=== PATIENT | female | born 1970 | race Caucasian/White ===

== ENCOUNTER 2017-05-25 16:56 | Emergency (ER) | payer MEDICARE ==
--- OUTSIDE RECORDS SUMMARY | 2017-05-25 17:04 | XMS REPORT ---
:1970 External Reference #:[id number] Author Organization [facility] Address [address] [address] Phone [phone] Care Team Providers Name Role Phone Aleks Amanda III, MD Primary Care Physician Unavailable Payers Type Date Identification Numbers Payment Provider Subscriber Medicare Primary Effective: Policy Number: Medicare Cris Blair 2012 [id number] PayID: [id number] [address] [place] [address] [facility] Policy Number: [id number] Medicaid Cris Blair Group Name: 1 1 [address] PayID: [id number] [place] [address] Problems Date Description Provider Status Onset: 02/08/2007 Seizure Noe Luke M.D.,FACP Active Onset: 02/08/2007 Insomnia Noe Luke M.D.,FACP Active Onset: 02/08/2007 Migraine with typical aura Noe Luke M.D.,FACP Active Onset: 07/08/2011 Chest pain Pam Harrison D.O. Active Onset: 04/13/2012 Myalgia & Myositis Unspec Aleks Amanda M.D. Active Onset: 04/13/2012 Pure hypercholesterolemia Aleks Amanda M.D. Active Family History Date Family Member(s) Problem(s) Comments General Coronary Artery Disease (CAD) Shashank kraft 50's [place], and other family members on maternal side : (age Father due to CA (+) smoker 48 Years) Father Coronary Artery Disease (CAD) 49 yo [place] Onset: (age 19 Mother Hypertension Years) Mother due to CA () - age 57; no prior heart problems. (+) smoker, HTN Mother Hypercholesterolemia Mother Coronary Artery Disease (CAD) 58 yo [place] Paternal Grandmother Hypertension Maternal Grandfather due to CA () - age 60's Maternal Grandmother due to CA () - age 60's Social History Type Date Description Comments Marital Status Single Lives With Daughter Occupation currently not working Cigarette Use Never Smoked Cigarettes ETOH Use Rarely consumes alcohol Recreational Drug Use Denies Drug Use Smoking Patient has never smoked Daily Caffeine Consumes on average 1 cup of regular coffee per day Enjoy Exercising Does not enjoy exercising Exercise Type/Frequency Exercises regularly occasionally walking General Hx Text 1 daughter Allergies, Adverse Reactions, Alerts Date Description Reaction Status Severity Comments 06/22/2009 Wellbutrin XL agitation, anxiety and active muscle cramps 06/19/2010 Lyrica edema active 06/19/2010 Gluten active 05/21/2012 Savella ssri syndrome active Moderate to Severe 09/09/2012 Neurontin hyperactive active 11/05/2012 Clonazepam aggitated active 01/20/2013 Tizanidine active Medications Medication Date Status Form Strength Qnty SIG Indications Ordering Provider Baclofen 05/21/ Active Tablets 10mg 30tab take 04/07 R51 Romulo 2018 s tab every 8 Bridgette, [employer]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 as needed for muscle spasm Naproxen 04/23/ Active Tablets 500mg 20tab 1 tablet R51 Romulo 2018 s with food Bridgette, [employer] NETWORK ADMINISTRATOR by mouth twice a day as needed Blood Pressure 11/08/ Active Misc 1unit in the 401.9 Kala Monitor 2013 s morning and Tabitha Oakley/Manual at night M.DLam Inflate Garlic / Active daily Unknown 0000 Adderall XR / Active Caps ER 30mg 1 by mouth Unknown 0000 24HR every day Klonopin / Active Tablets 1mg 1po a day Unknown 0000 Cholestyramine / Active Packet 4gm mix one Herminia, Light 0000 packet in raji Laura and take by mouth twice a day Zinc / Active Tablets 50mg 1 tab daily Unknown 0000 (otc) B6 Natural 00/ Active Tablets 50mg take one Unknown 0000 capsule/tab let daily by mouth D3-1000 0000/ Active Capsules 5000Unit please take Unknown 0000 1 tab daily Zyflammend / Active 2 caps Unknown 0000 daily Probiotic / Active Capsules 1 by mouth Unknown 0000 every day Doxycycline 04/23/ Hx Capsules 100mg 42cap si A69.20 Romulo Monohydrate 2018 - s twice a day JANI Angeles 05/06/ x 21 days 2018 Cholestyramine 11/22/ Hx Packet 4gm 50uni as directed Kala Watkins ts Adin MMahsa 2015 Propranolol HCL 11/22/ Hx Caps ER 80mg 30cap 1 tab po in 401.1 Kala ROMERO 2013 - 24HR s the evening Adin, MMahsa 2015 Lisinopril 11/08/ Hx Tablets 10mg 30tab 1 by mouth 401.9 Kala michelle every day Adin MMahsa 2013 Aspir-81 11/08/ Hx Tablets 81mg 100ta 1 by mouth 401.[address] bs every day Adin MMahsa 2015 Atenolol 11/08/ Hx Tablets 25mg 90tab 1 by mouth 401.9 Kala 2013 Roland michelle every day Adin MMahsa 2016 Propranolol HCL 11/04/ Hx Tablets 10mg 1 by mouth Other 2014 - three times Ordering 11/22/ a daily Provider 2013 Lamotrigine 04/04/ Hx Tablets 25mg 60tab take 1 po Tiffani 2012 - s qhs x 2 Laron, 11/08/ weeks, then M.D. 2014 1 po bid Cyclobenzaprine 01/20/ Hx Tablets 10mg 30tab one po tid 723.1 Sharri HCL 2012 - s prn spasm Jerry, 04/04/ N.P. 2012 Ibuprofen 11/05/ Hx Tablets 200mg 100ta 3 tablets Sharri 2012 - bs prn Jerry, 11/05/ N.P. 2013 Cyclobenzaprine 11/05/ Hx Tablets 5mg 20tab 1 tab po 729.1 Sharri HCL 2012 - s tid prn Jerry, 01/20/ N.P. 2013 Venlafaxine HCL 09/09/ Hx Tablets 225mg 30tab 1 tab po qd Sharri ER 2013 - ER 24HR s Jerry, 10/28/ N.P. 2013 Tramadol HCL 09/09/ Hx Tablets 50mg 90tab 1 tab po q 729.1 Sharri 2012 - s 4-6 hours Jerry, 10/14/ prn; N.P. 2012 Aleve 08/04/ Hx Capsules 220mg 60cap prn Other 2012 - s Ordering 07/11/ Provider 2016 Adderall 08/04/ Hx Tablets 20mg 60tab 1 po bid Other 2012 - s Ordering 11/08/ Provider 2014 Gabapentin 05/21/ Hx Capsules 300mg 90cap 300 mg po 729.1 Sharri 2012 - s qd x1 day, Jerry, 08/04/ then 300 mg N.P. 2012 po bid x1 day, then 300 mg po tid Cyclobenzaprine 05/21/ Hx Tablets 5mg 30tab 1 tab po 524.60 Sharri HCL 2012 - qhs Jerry, 08/04/ N.P. 2013 Ergocalciferol 05/21/ Hx Capsules [id number] 12cap 1 cap po q1 268.9 Sharri 2012 - week for 2 Jerry, 08/04/ months then N.P. 2013 2x/mon Butrans 04/13/ Hx Patches 10mcg/HR 4unit apply 1 Aleks Payne 2012 - s patch Treasure, 08/04/ weekly M.DLam 2012 Prazosin HCL 06/30/ Hx Capsules 1mg 1 po tid Aleks Payne 2011 - Treasure, 06/30/ M.D. 2012 Ibuprofen 01/14/ Hx Tablets 600mg 45tab tid 382.9 Nakul 2010 - s Pachikara 04/13/ , MJosé. 2013 Amoxicillin 07/15/ Hx Capsules 500mg 30cap 1 tid for 462 Aleks Payne 2010 - s 10 days Treasure, 09/26/ M.D. 2011 Duragesic-25 10/10/ Hx Patches 25mcg/HR 10uni apply Noe 2009 - 72HR ts topically Kimi Luke, 01/16/ change q3 Yoav,FACP 2010 days Use with 12mcg patch Duragesic-12 10/10/ Hx Patches 12mcg/HR 10uni topical q3d Noe 2009 - 72HR ts with 25 mcg Kimi Luke, 01/14/ patch Yoav,FACP 2010 Duragesic-50 10/03/ Hx Patches 50mcg/HR 10uni apply 729.1 Noe 2009 - 72HR ts topically Kimi Luke, 10/10/ q3days M.D.,FACP 2010 Clonidine HCL 09/27/ Hx Tablets 0.1mg 60tab 1 po bid Noe 2009 Roland Luke, 05/13/ M.D.,FACP 2011 Omeprazole 09/27/ Hx Capsules 20mg 30cap 1 po qd for 530.81 Noe michelle 2 wks then Kimi Luke, 05/13/ prn M.D.,FACP 2011 Savella Titration 09/27/ Hx Misc 12.5& 1pak as directed 729.1 Ravi Turcios 2009&50 samples Kimi Luke, 10/17/ mg M.D.,FACP 2010 Tramadol HCL 09/25/ Hx Tablets 50mg 100ta PO qid prn 729.1 Noe 2009 Roland Luke, 05/13/ M.D.,FACP 2011 Duragesic-12 09/07/ Hx Patches 12mcg/HR 10uni topical q3d Noe 2009 - 72HR ts with 25 mcg Kimi Luke, 09/27/ patch M.D.,FACP 2009 Adderall 08/17/ Hx Tablets 30mg 30tab 1 po daily Noe 2009 Roland Luke, 04/13/ M.D.,FACP 2013 Vitamin D 08/17/ Hx Capsules 1000Unit 30cap 2 po qd 268.9 Noe 2009 Roland Luke, 06/30/ M.D.,FACP 2011 Duragesic-25 08/17/ Hx Patches 25mcg/HR 10uni apply 729.1 Noe 2009 - 72HR ts topically Kimi Luke, 10/03/ change q3 M.D.,FACP 2010 days Lyrica 07/30/ Hx Capsules 25mg 60cap 1 po bid Noe 2009 Roland Luke, 08/17/ M.D.,FACP 2010 Methadone HCL 06/14/ Hx Tablets 5mg 120ta 1-2 po bid Noe 2009 - bs prn pain Kimi Luke, 08/17/ M.D.,FACP 2010 Hydrocodone-Aceta 05/11/ Hx Tablets 10-325mg 40tab 1 q 4- 6 729.1 Ellen mariano 2009 - s hours prn Tiffany, pain M.D. 2009 Methadone HCL 12/15/ Hx Solution 5mg/5ML 600ml 5-10mg bid 729.1 Ravi Prince 2008 - prn pain Kimi Luke, M.D.,FACP 2010 Savella 11/28/ Hx Tablets 100mg 60tab 1 bid 729.1 Noe 2008 - s Kimi Luke, .D.,FACP 2010 Zofran 11/16/ Hx Tablets 4mg 60tab 1 q 6 hours 787.02 Noe 2008 - s prn nausea Kimi Luke, .D.,FACP 2010 Methadone HCL 11/16/ Hx Tablets 5mg 90tab 1 po tid Noe Cas[place] - s Kimi Luke, .D.,FACP 2008 Methadone HCL 07/17/ Hx Tablets 10mg 180ta 1or 2 tabs Noe 2009 - bs tid prn Kimi Luke, pain M.D.,FACP 2010 Oxycodone HCL 06/21/ Hx Capsules 5mg 240ca 2tab q6hr 729.1 Noe 2008 - ps prn Kimi Luke, .D.,FACP 2008 Oxycontin 06/15/ Hx Tablets 20mg 60tab 1-2 q12h Noe 2008 - ER 12HR viviana Luke, .D.,FACP 2008 Oxycodone HCL 06/15/ Hx Tablets 10mg 120ta 1 q 6 hours 729.1 Noe 2008 - bs prn pain Kimi Luke, M.D.,FACP 2008 Cymbalta 05/03/ Hx Caps DR 30mg 60cap po qd Noe 2008 - PA s Kimi Luke, M.D.,FACP 2010 Lamictal 05/03/ Hx Tablets 25mg 2 po qd Noe Luke, 04/16/ M.D.,FACP 2009 Methadone HCL 03/14/ Hx Tablets 10mg 120ta 1or 2 tabs 338.4 Noe 2008 - bs po tid D. Marly, 06/15/ M.D.,FACP 2009 Duragesic 01/04/ Hx Patches 50mcg/HR 10uni 1 patch q72 729.1 Noe 2008 - 72HR ts D. Marly, 03/14/ M.D.,FACP 2007 Duragesic 12/01/ Hx Patches 25mcg/HR 10uni topical 729.1 Noe 2008 - 72HR ts q3days D. Marly, 03/14/ M.D.,FACP 2008 Ultram 10/21/ Hx Tablets 50mg 40tab 1 or 2 tabs Aleks ELam 2008 - s q 6 hours Treasure, 08/04/ prn pain M.D. 2013 Skelaxin 10/21/ Hx Tablets 800mg 90tab 1 q 8 hours Noe 2008 - s prn muscle D. Marly, 01/25/ spasms M.D.,FACP 2007 Duragesic 10/18/ Hx Patches 50mcg/HR 10uni 1 patch 729.1 Noe 2008 - 72HR ts every 72 D. Marly, 12/01/ hours M.D.,FACP 2007 Hydrocodone/Apap 09/16/ Hx Tablets 10-325mg 180ta 1 q 4 hours 729.1 Noe 2008 - bs prn pain D. Marly, 06/22/ M.D.,FACP 2009 Cephalexin 06/07/ Hx Capsules 500mg 30cap 1 tid x 10 461.9 Noe 2008 - s days DLam Luke, 10/18/ M.D.,FACP 2008 Lyrica 06/07/ Hx Capsules 50mg 90cap 1 po tid 729.1 Noe 2008 - s DLam Luke, 01/25/ M.D.,FACP 2008 Methadone 04/29/ Hx Tablets 10mg 12tab 1tab tid x Noe 2008 - s 2days DLam Luke, 05/31/ M.D.,FACP 2008 1tab bid x 2days 1tab qd x 2days Lamictal 03/03/ Hx Tablets 25mg 3Mont bid Noe 2007 - h Kimi Luke, 05/03/ M.D.,FACP 2009 Amoxicillin 03/03/ Hx Capsules 500mg 40cap 2 bid for 461.9 Noe 2006 - s 10 days Kimi Luke, 05/31/ M.D.,FACP 2008 Remeron 02/08/ Hx Tablets 30mg 1 Tabs PO Noe 2006 - Q hs Kimi Luke, 06/07/ M.D.,FACP 2008 Ambien 02/08/ Hx Tablets 10mg 30tab 1 po qhs Noe 2006 - s prn sleep Kimi Luke, 06/07/ insomnia M.D.,FACP 2007 Lamictal 02/08/ Hx Tablets 25mg qd, Noe 2006 - increasing Kimi Luke, 03/03/ M.D.,FACP 2006 Ambien / Hx Tablets 10mg. 10tab 1 hs prn Noe - s Kimi Luke, 09/16/ M.D.,FACP 2007 Zoloft / Hx Tablets 50mg 30tab 1 PO qd Unknown 0000 - s 2007 Lunesta /00/ Hx Unknown 0000 - 2008 Cymbalta / Hx Caps DR 60mg 1 PO qd Unknown 0000 - Part 2008 Abilify / Hx Tablets 5mg 1 po qd Unknown - 2009 Wellbutrin XL 00/ Hx Tablets 450 90tab once qd 729.1 Unknown 0000 - ER 24HR s 2009 Savella 00/ Hx Tablets 50mg 60tab 1 po bid 729.1 Noe - s Kimi Luke, 08/17/ M.D.,FACP 2009 Effexor /00/ Hx Tablets 37.5mg 3 po qd Unknown 0000 - 2010 Klonopin 00/ Hx Tablets 2mg 1/2-1 tab Unknown 0000 - up to qid 06/19/ prn 2010 Effexor XR /00/ Hx Caps ER 150mg 1 tab po qd Unknown 0000 - 24HR am 2012 Adderall 00/ Hx Tablets 10mg 1 by mouth Unknown 0000 - daily 2011 Valium 00/00/ Hx Tablets 10mg 10tab 1 po qd Unknown 0000 - s 2010 Multi Vitamin 00/00/ Hx Liquid 1 po qd Unknown 0000 - 2011 Remeron /00/ Hx Tablets 15mg 90tab 1 po hs Unknown 0000 - s 2010 Aspirin 00/00/ Hx Tablets 81mg 50tab 1 po qd Unknown 0000 - DR s 2011 Doxepin HCL / Hx Capsules 25mg one po qday Unknown - 2011 Butrans 00/ Hx Patches 15mcg 4unit topical Unknown 0000 - Weekly s q7days 2011 Augmentin // Hx Tablets 875mg 20tab 1 po bid Unknown 0000 - s for ten 2010 Venlafaxine HCL 00/00/ Hx Caps ER 150mg 30cap 1 po bid Unknown ER 0000 - 24HR s 2011 Tizanidine HCL / Hx Tablets 4mg 60tab take 1 Unknown 0000 - s tablet po and in 2012 the am for spasm. Clonazepam 00/00/ Hx Tablets 1mg 90tab 1 po q bid Unknown 0000 - s 2012 Adderall XR / Hx Caps ER 30mg 30cap 1 capsule Unknown 0000 - 24HR s po qday 2011 Aleve /00/ Hx Capsules 220mg 60cap 1 po bid Unknown 0000 - s prn 2011 Brainstorm 00/00/ Hx Unknown - 2012 Piotr Oil /00/ Hx Unknown - 2012 Alice Agus Soriano 00/00/ Hx Unknown - 2012 Naprosyn /00/ Hx Tablets 60tab 1 po bid Unknown 0000 - s 2012 Zanaflex /00/ Hx Capsules 270ca po tid prn Unknown 0000 - ps [address] 00/ Hx Tablets 81mg 1 po qd Unknown 0000 - DR 2012 Prazosin HCL 00/ Hx Capsules 2mg 1-2 prn Unknown - 2012 Vitamin D3 High 00/ Hx Capsules 5000Unit 1 tabs Unknown Potency 0000 - daily 2012 Melatonin 00/00/ Hx Capsules 5mg 30cap 1 po qhs Unknown 0000 - s 2012 Zyprexa 00/00/ Hx Solution 2.5 sublingual Unknown 0000 - Rec 2012 Temazepam 00/00/ Hx Capsules 30cap 1 po qhs Unknown 0000 - s 2012 Venlafaxine HCL 00/00/ Hx Tablets 150mg 90tab 1 po qd Unknown ER 0000 - ER 24HR s 2013 Clonazepam /00/ Hx Tablets 1mg 20tab 1-3 tablets Unknown 0000 - s po prn 2012 Ibuprofen /00/ Hx Tablets 200mg 100ta 3 tabs prn Unknown 0000 - bs 2015 Trazodone HCL 00/ Hx Tablets 50mg 30tab 1 tablet at Unknown 0000 - s bedtime as 2013 Stinging Nettle / Hx Capsule 4 PO qd Unknown 0000 - 2013 Zyflammend / Hx 2 PO qd Unknown 0000 - 2013 Tumeric 00/ Hx 4 PO qd Unknown 0000 - 2013 [place] 3 // Hx Capsules 1000mg 100ca 1 po qd. Unknown 0000 - ps 2013 Magnesium /00/ Hx daily Unknown 0000 - 2015 Effexor XR / Hx Caps ER 75mg tapering Unknown 0000 - 24HR dose 2015 Immunizations CPT Code Status Date Vaccine Lot # [id number] Given 03/03/2007 Influenza Virus 3Yrs & Over [id number] Given Unknown Tetanus And Diptheria (Td) For Adult Use Preservative Free Vital Signs Date Vital Result Comment 05/21/2017 Weight 150.75 lb Heart Rate 77 /min BP Systolic 126 mmHg BP Diastolic 76 mmHg Body Temperature 97.0 F O2 % BldC Oximetry 98 % 05/06/2017 Height 67 inches 5'7" Weight 152.00 lb Heart Rate 74 /min BP Systolic 123 mmHg BP Diastolic 82 mmHg Body Temperature 98.1 F O2 % BldC Oximetry 98 % BMI (Body Mass Index) 23.8 kg/m2 05/01/2017 Height 66 inches 5'6" Weight 152.00 lb Heart Rate 92 /min BP Systolic Sitting 124 mmHg BP Diastolic Sitting 78 mmHg Respiratory Rate 14 /min Body Temperature 98.2 F BMI (Body Mass Index) 24.5 kg/m2 04/23/2017 Weight 150.25 lb Heart Rate 100 /min BP Systolic 140 mmHg BP Diastolic 86 mmHg Body Temperature 98.3 F O2 % BldC Oximetry 99 % 07/12/2015 Weight 175.00 lb Heart Rate 82 /min BP Systolic Sitting 145 mmHg BP Diastolic Sitting 101 mmHg Body Temperature 98.7 F 11/22/2013 Height 66.5 inches 5'6.50" Weight 196.00 lb Heart Rate 83 /min BP Systolic Sitting 142 mmHg BP Diastolic Sitting 86 mmHg O2 % BldC Oximetry 98 % BMI (Body Mass Index) 31.2 kg/m2 11/09/2013 Height 66.5 inches 5'6.50" Weight 193.00 lb BP Systolic 130 mmHg Ra large cuff BP Diastolic 86 mmHg Ra large cuff BP Systolic Sitting 112 mmHg LA large cuff BP Diastolic Sitting 82 mmHg LA large cuff BP Systolic Standing 118 mmHg LA BP Diastolic Standing 88 mmHg LA Respiratory Rate 16 /min BMI (Body Mass Index) 30.7 kg/m2 11/08/2013 Weight 193.75 lb Heart Rate 86 /min BP Systolic Sitting 141 mmHg BP Diastolic Sitting 97 mmHg 04/15/2013 Heart Rate 76 /min BP Systolic Sitting 130 mmHg BP Diastolic Sitting 70 mmHg Respiratory Rate 16 /min 04/04/2013 Heart Rate 80 /min BP Systolic Sitting 150 mmHg BP Diastolic Sitting 90 mmHg Respiratory Rate 17 /min 01/20/2013 Weight 189.75 lb Heart Rate 98 /min BP Systolic Sitting 132 mmHg BP Diastolic Sitting 90 mmHg 11/05/2012 Height 66.5 inches 5'6.50" Weight 193.50 lb Heart Rate 88 /min BP Systolic Sitting 124 mmHg BP Diastolic Sitting 88 mmHg BMI (Body Mass Index) 30.8 kg/m2 10/28/2012 Height 66.75 inches 5'6.75" Weight 193.50 lb Heart Rate 96 /min BP Systolic Sitting 136 mmHg BP Diastolic Sitting 106 mmHg BMI (Body Mass Index) 30.5 kg/m2 09/09/2012 Weight 191.00 lb Heart Rate 105 /min BP Systolic Sitting 125 mmHg BP Diastolic Sitting 90 mmHg 08/04/2012 Height 66.5 inches 5'6.50" Weight 193.75 lb Heart Rate 96 /min BP Systolic Sitting 130 mmHg BP Diastolic Sitting 90 mmHg BMI (Body Mass Index) 30.8 kg/m2 05/21/2012 Height 66.5 inches 5'6.50" Weight 184.00 lb Heart Rate 72 /min BP Systolic Sitting 122 mmHg BP Diastolic Sitting 70 mmHg BMI (Body Mass Index) 29.3 kg/m2 05/04/2012 Height 66.5 inches 5'6.50" Weight 189.75 lb Heart Rate 84 /min BP Systolic Sitting 140 mmHg BP Diastolic Sitting 88 mmHg BMI (Body Mass Index) 30.2 kg/m2 04/13/2012 Height 66.5 inches 5'6.50" Weight 190.00 lb Heart Rate 88 /min BP Systolic Sitting 154 mmHg BP Diastolic Sitting 102 mmHg BMI (Body Mass Index) 30.2 kg/m2 07/08/2011 Height 66.50 inches 5'6.50" Weight 177.00 lb Heart Rate 93 /min BP Systolic Sitting 150 mmHg BP Diastolic Sitting 100 mmHg BMI (Body Mass Index) 28.1 kg/m2 07/01/2011 Height 66.50 inches 5'6.50" Weight 176.00 lb Heart Rate 76 /min BP Systolic Sitting 124 mmHg BP Diastolic Sitting 88 mmHg BMI (Body Mass Index) 28.0 kg/m2 01/14/2011 Height 66.50 inches 5'6.50" Weight 166.00 lb Heart Rate 68 /min BP Systolic Sitting 150 mmHg BP Diastolic Sitting 90 mmHg BMI (Body Mass Index) 26.4 kg/m2 09/26/2010 Heart Rate 80 /min BP Systolic 124 mmHg BP Diastolic 90 mmHg 07/15/2010 Weight 169.00 lb Heart Rate 62 /min BP Systolic Sitting 112 mmHg BP Diastolic Sitting 70 mmHg Body Temperature 101.5 F lt ear 06/19/2010 Height 66 inches 5'6" Weight 167.00 lb Heart Rate 86 /min BP Systolic 120 mmHg BP Diastolic 70 mmHg BP Systolic Sitting 122 mmHg BP Diastolic Sitting 80 mmHg BP Systolic Standing 120 mmHg BP Diastolic Standing 80 mmHg Respiratory Rate 16 /min BMI (Body Mass Index) 27.0 kg/m2 05/13/2010 Height 66.25 inches 5'6.25" Weight 167.00 lb Heart Rate 84 /min BP Systolic Sitting 130 mmHg BP Diastolic Sitting 86 mmHg BMI (Body Mass Index) 26.7 kg/m2 10/18/2009 Height 66.25 inches 5'6.25" Weight 163.00 lb Heart Rate 88 /min BP Systolic Sitting 142 mmHg BP Diastolic Sitting 94 mmHg BMI (Body Mass Index) 26.1 kg/m2 09/27/2009 Height 66.25 inches 5'6.25" Weight 161.00 lb Heart Rate 92 /min BP Systolic Sitting 130 mmHg BP Diastolic Sitting 80 mmHg BMI (Body Mass Index) 25.8 kg/m2 08/17/2009 Height 66.25 inches 5'6.25" Weight 161.75 lb Heart Rate 76 /min BP Systolic 118 mmHg BP Diastolic 92 mmHg Respiratory Rate 16 /min Body Temperature 98.7 F BMI (Body Mass Index) 25.9 kg/m2 07/26/2009 Height 66.25 inches 5'6.25" Weight 156.00 lb Heart Rate 80 /min BP Systolic 114 mmHg BP Diastolic 84 mmHg BMI (Body Mass Index) 25.0 kg/m2 06/22/2009 Height 66.25 inches 5'6.25" Weight 158.00 lb Heart Rate 60 /min BP Systolic Sitting 120 mmHg BP Diastolic Sitting 70 mmHg BMI (Body Mass Index) 25.3 kg/m2 05/15/2009 Height 66.50 inches 5'6.50" Weight 156.50 lb Heart Rate 84 /min BP Systolic Sitting 124 mmHg BP Diastolic Sitting 92 mmHg BMI (Body Mass Index) 24.9 kg/m2 05/11/2009 Height 66.50 inches 5'6.50" Weight 160.50 lb Heart Rate 96 /min BP Systolic Sitting 130 mmHg BP Diastolic Sitting 82 mmHg BMI (Body Mass Index) 25.5 kg/m2 12/15/2008 Height 66.50 inches 5'6.50" Weight 161.00 lb Heart Rate 84 /min BP Systolic Sitting 116 mmHg BP Diastolic Sitting 84 mmHg BMI (Body Mass Index) 25.6 kg/m2 11/28/2008 Height 66.50 inches 5'6.50" Weight 162.00 lb Heart Rate 84 /min BP Systolic Sitting 134 mmHg BP Diastolic Sitting 92 mmHg BMI (Body Mass Index) 25.8 kg/m2 11/16/2008 Height 66.50 inches 5'6.50" Weight 161.00 lb Heart Rate 88 /min BP Systolic Sitting 112 mmHg BP Diastolic Sitting 80 mmHg BMI (Body Mass Index) 25.6 kg/m2 10/24/2008 Height 66.50 inches 5'6.50" Weight 167.00 lb Heart Rate 76 /min BP Systolic Sitting 122 mmHg BP Diastolic Sitting 86 mmHg BMI (Body Mass Index) 26.5 kg/m2 07/20/2008 Weight 161.00 lb Heart Rate 90 /min BP Systolic Sitting 112 mmHg BP Diastolic Sitting 62 mmHg 06/15/2008 Height 67 inches 5'7" Weight 156.00 lb Heart Rate 64 /min BP Systolic Sitting 118 mmHg BP Diastolic Sitting 76 mmHg BMI (Body Mass Index) 24.4 kg/m2 05/03/2008 Weight 151.00 lb Heart Rate 70 /min BP Systolic Sitting 130 mmHg BP Diastolic Sitting 70 mmHg Respiratory Rate 16 /min 03/14/2008 Height 67 inches 5'7" Weight 142.00 lb Heart Rate 86 /min BP Systolic Sitting 124 mmHg BP Diastolic Sitting 82 mmHg BMI (Body Mass Index) 22.2 kg/m2 01/26/2008 Height 67 inches 5'7" Weight 140.00 lb Heart Rate 60 /min BP Systolic Sitting 116 mmHg BP Diastolic Sitting 60 mmHg BMI (Body Mass Index) 21.9 kg/m2 11/26/2007 Height 67 inches 5'7" Weight 154.00 lb Heart Rate 68 /min BP Systolic Sitting 124 mmHg BP Diastolic Sitting 82 mmHg BMI (Body Mass Index) 24.1 kg/m2 10/19/2007 Height 67 inches 5'7" Weight 155.00 lb Heart Rate 76 /min BP Systolic Sitting 114 mmHg BP Diastolic Sitting 76 mmHg BMI (Body Mass Index) 24.3 kg/m2 09/17/2007 Height 67 inches 5'7" Weight 157.00 lb Heart Rate 62 /min BP Systolic Sitting 116 mmHg BP Diastolic Sitting 60 mmHg BMI (Body Mass Index) 24.6 kg/m2 06/08/2007 Height 67 inches 5'7" Weight 163.00 lb Heart Rate 76 /min BP Systolic Sitting 112 mmHg BP Diastolic Sitting 62 mmHg BMI (Body Mass Index) 25.5 kg/m2 03/03/2007 Height 67 inches 5'7" Weight 167.00 lb Heart Rate 80 /min BP Systolic Sitting 112 mmHg BP Diastolic Sitting 80 mmHg Body Temperature 98.3 F BMI (Body Mass Index) 26.2 kg/m2 02/08/2007 Height 67 inches 5'7" Weight 150.00 lb Heart Rate 88 /min BP Systolic Sitting 115 mmHg BP Diastolic Sitting 70 mmHg BMI (Body Mass Index) 23.5 kg/m2 Results Test Date Test Result H/L Range Note Laboratory test finding 07/13/2015 Monospot Negative Negative 1 CBC Auto Diff 07/13/2015 White Blood Count 4.8 10^3/uL 3.5-10.8 Red Blood Count 4.77 10^6/uL 4.0-5.4 Hemoglobin 13.3 g/dL 12.0-16.0 Hematocrit 40 % 35-47 Mean Corpuscular Volume 83 fL 80-97 Mean Corpuscular Hemoglobin 28 pg 27-31 Mean Corpuscular HGB Conc 34 g/dL 31-36 Red Cell Distribution Width 13 % 10.5-15 Platelet Count 292 10^3/uL 150-450 Mean Platelet Volume 9 um3 7.4-10.4 Abs Neutrophils 2.5 10^3/uL 1.5-7.7 Abs Lymphocytes 1.8 10^3/uL 1.0-4.8 Abs Monocytes 0.4 10^3/uL 0-0.8 Abs Eosinophils 0 10^3/uL 0-0.6 Abs Basophils 0 10^3/uL 0-0.2 Abs Nucleated RBC 0 10^3/uL Granulocyte % 53.3 % 38-83 Lymphocyte % 36.8 % 25-47 Monocyte % 8.6 % 1-9 Eosinophil % 0.4 % 0-6 Basophil % 0.9 % 0-2 Nucleated Red Blood Cells % 0.1 Laboratory test finding 07/13/2015 Erythrocyte Sed Rate 14 mm/Hr 0-14 2 CRP High Sensitivity 1.99 mg/L 3 Comp Metabolic Panel 07/13/2015 Sodium 135 mmol/L 133-145 Potassium 4.2 mmol/L 3.5-5.0 Chloride 100 mmol/L Low 101-111 Co2 Carbon Dioxide 28 mmol/L 22-32 Anion Gap 7 mmol/L 2-11 Glucose 91 mg/dL 70-100 Blood Urea Nitrogen 8 mg/dL 6-24 Creatinine 0.79 mg/dL 0.51-0.95 BUN/Creatinine Ratio 10.1 8-20 Calcium 9.3 mg/dL 8.6-10.3 Total Protein 7.3 g/dL 6.4-8.9 Albumin 4.5 g/dL 3.2-5.2 Globulin 2.8 g/dL 2-4 Albumin/Globulin Ratio 1.6 1-3 Total Bilirubin 0.40 mg/dL 0.2-1.0 Alkaline Phosphatase 53 U/L 34-104 Alt 12 U/L 7-52 Ast 16 U/L 13-39 Egfr Non- 78.3 >60 Egfr 100.8 >60 4 Laboratory test finding 07/13/2015 TSH (Thyroid Stim Horm) 2.42 ?IU/mL 0.34-5.60 Lyme Disease Serology Negative Negative 5 Urinalysis Profile 07/13/2015 Urine White Blood Cell Trace(0-5/hpf) Absent Urine Red Blood Cell Trace(0-2/hpf) Absent Urine Bacteria Absent Absent Urine Squamous Epithelial Cell Present Absent Urine Color Yellow Urine Appearance Clear Urine Specific Baker 1.006 Low 1.010-1.030 Urine pH 7.0 5-9 Urine Urobilinogen Negative Negative Urine Ketones Negative Negative Urine Protein Negative Negative Urine Leukocytes Negative Negative Urine Blood 2+ Negative Urine Nitrite Negative Negative Urine Bilirubin Negative Negative Urine Glucose Negative Negative Vitamin D, 25 Hydroxy 01/20/2013 25-Hydroxy Vitamin D2 8.8 ng/mL 25-Hydroxy Vitamin D3 21 ng/mL 25-Hydroxy Vitamin D Total 30 ng/mL 6 Vitamin B12 And Folate Serum 01/20/2013 Vitamin B12 527 pg/mL 180-914 Folate 9.1 ng/mL 2-16 CBC With Manual Diff 01/20/2013 White Blood Count 7.2 10^3/uL 4.8-10.8 Red Blood Count 4.60 10^6/uL 4.0-5.4 Hemoglobin 13.5 g/dL 12.0-16.0 Hematocrit 39 % 35-47 Mean Corpuscular Volume 85 fL 80-97 Mean Corpuscular Hemoglobin 29 pg 27-31 Mean Corpuscular HGB Conc 34 g/dL 31-36 Red Cell Distribution Width 14 % 10.5-15 Platelet Count 294 10^3/uL 150-450 Mean Platelet Volume 9 um3 7.4-10.4 Abs Neutrophils 4.7 10^3/uL 1.5-7.7 Abs Lymphocytes 2.0 10^3/uL 1.0-4.8 Abs Monocytes 0.5 10^3/uL 0-0.8 Abs Eosinophils 0 10^3/uL 0-0.6 Abs Basophils 0 10^3/uL 0-0.2 Abs Nucleated RBC 0 10^3/uL Neutrophil % 56 % 38-83 Band % 2 % 0-8 Lymphocytes % 30 % 25-47 Monocytes % 9 % 0-13 Eosinophils % 3 % 0-6 RBC Morphology Normal Normal Basic Metabolic Panel 01/20/2013 Sodium 134 mmol/L 133-145 Potassium 4.5 mmol/L 3.5-5.0 Chloride 103 mmol/L 101-111 Co2 Carbon Dioxide 26.0 mmol/L 22-32 Anion Gap 5.0 mmol/L 2-11 Glucose 108 mg/dL High 70-100 Blood Urea Nitrogen 11 mg/dL 6-24 Creatinine 0.80 mg/dL 0.50-1.40 BUN/Creatinine Ratio 13.8 8-20 Calcium 8.9 mg/dL 8.1-9.9 Egfr Non- 78.3 >60 Egfr 100.7 >60 7 Liver Function Panel 11/04/2012 Total Protein 6.4 g/dL 6.2-8.1 Albumin 3.8 g/dL 3.6-5.4 Globulin 2.6 g/dL 2-4 Albumin/Globulin Ratio 1.5 1-3 Total Bilirubin 0.5 mg/dL 0.4-1.5 Direct Bilirubin 0.1 mg/dL 0.1-0.5 Indirect Bilirubin 0.4 mg/dL 0.3-1.0 Alkaline Phosphatase 73 U/L 30-110 Alt 18 U/L 14-54 Ast 19 U/L 12-42 Laboratory test finding 11/04/2012 Egg White Allergen IgE <0.35 kU/L 8 Beef Allergen IgE <0.35 kU/L 9 Chicken Meat Allergen IgE <0.35 kU/L 10 Chocolate Allergen IgE <0.35 kU/L 11 Sycamore Allergen IgE <0.35 kU/L 12 Cow's Milk Allergen IgE <0.35 kU/L 13 [place] Allergen IgE <0.35 kU/L 14 Peanut Allergen IgE <0.35 kU/L 15 Rice Allergen IgE <0.35 kU/L 16 Soybean Allergen IgE <0.35 kU/L 17 Tomato Allergen IgE <0.35 kU/L 18 Wheat Allergen IgE <0.35 kU/L 19 Lipid Profile (Trig/Chol/HDL) 11/04/2012 Triglycerides 90 mg/dL 40-200 Cholesterol 180 mg/dL Less than 200 HDL Cholesterol 52 mg/dL 40-60 20 Cholesterol/HDL Ratio 3.5 Average 1-4.44 LDL Cholesterol 110.0 High Less Than 100 21 Laboratory test finding 11/04/2012 Glucose 99 mg/dL 70-100 22 Laboratory test finding 11/04/2012 Free T4 0.76 ng/mL 0.61-1.24 T4 5.6 g/mL 5.0-12.0 Total T3 0.62 ng/mL 0.5-1.7 Laboratory test finding 05/04/2012 TSH (Thyroid 1.61 miu/mL 0.34-5.60 Stimulating Horm) Vitamin D, 25 Hydroxy 05/04/2012 25-Hydroxy Vitamin D2 <4.0 ng/mL 25-Hydroxy Vitamin D3 28 ng/mL 25-Hydroxy Vitamin D Total 28 ng/mL 23 Laboratory test finding 05/04/2012 C Reactive Protein 0.6 mg/dL High Less than 0.5 Erythrocyte Sed Rate 17 mm/Hr High 0-14 Comp Metabolic Panel 05/04/2012 Sodium 133 mmol/L 133-145 Potassium 4.5 mmol/L 3.5-5.0 Chloride 103 mmol/L 101-111 Co2 Carbon Dioxide 26.0 mmol/L 22-32 Anion Gap 4.0 mmol/L 2-11 Glucose 105 mg/dL High 70-100 Blood Urea Nitrogen 11 mg/dL 6-24 Creatinine 0.70 mg/dL 0.50-1.40 BUN/Creatinine Ratio 15.7 8-20 Calcium 9.5 mg/dL 8.1-9.9 Total Protein 6.0 g/dL Low 6.2-8.1 Albumin 3.8 g/dL 3.6-5.4 Globulin 2.2 g/dL 2-4 Albumin/Globulin Ratio 1.7 1-3 Total Bilirubin 0.4 mg/dL 0.4-1.5 Alkaline Phosphatase 66 U/L 30-110 Alt 16 U/L 14-54 Ast 20 U/L 12-42 Egfr Non- 91.8 >60 Egfr 118.0 >60 24 CBC Auto Diff 05/04/2012 White Blood Count 5.5 10^3/uL 4.8-10.8 Red Blood Count 4.28 10^6/uL 4.0-5.4 Hemoglobin 12.2 g/dL 12.0-16.0 Hematocrit 35 % 35-47 Mean Corpuscular Volume 82 fL 80-97 Mean Corpuscular Hemoglobin 29 pg 27-31 Mean Corpuscular HGB Conc 35 g/dL 31-36 Red Cell Distribution Width 13 % 10.5-15 Platelet Count 259 10^3/uL 150-450 Mean Platelet Volume 9 um3 7.4-10.4 Abs Neutrophils 3.1 10^3/uL 1.5-7.7 Abs Lymphocytes 1.8 10^3/uL 1.0-4.8 Abs Monocytes 0.5 10^3/uL 0-0.8 Abs Eosinophils 0 10^3/uL 0-0.6 Abs Basophils 0 10^3/uL 0-0.2 Abs Nucleated RBC 0 10^3/uL Granulocyte % 56.7 % 38-83 Lymphocyte % 32.7 % 25-47 Monocyte % 9.9 % High 1-9 Eosinophil % 0.2 % 0-6 Basophil % 0.5 % 0-2 Nucleated Red Blood Cells % 0 Vitamin D, 25 Hydroxy 07/08/2011 25-Hydroxy Vitamin D2 <4.0 ng/mL () 25-Hydroxy Vitamin D3 18 ng/mL () 25-Hydroxy Vitamin D Total 18 ng/mL () 25 Lead 07/08/2011 Lead < 1.0 g/dL 0-25.0 26 Lead Specimen Type VENOUS Laboratory test finding 07/08/2011 Mercury,Whole Blood <1 ng/mL 0-[address] Amanda's Lab Panel 03/11/2011 TSH 1.64 MIU/ML 0.34-5.60 Comp Metabolic Panel 03/11/2011 Sodium 138 mmol/L 135-145 Potassium 4.0 mmol/L 3.5-5.0 Chloride 105 mmol/L 101-111 Co2 (Carbon Dioxide) 26.0 mmol/L 22-32 Anion Gap 7.0 mmol/L 2-11 28 Glucose 73 mg/dL 70-100 BUN 10 mg/dL 6-24 Creatinine 0.7 mg/dL 0.50-1.40 One Over Creatinine 1.42 BUN/Creatinine Ratio 14.3 8-20 Calcium 9.4 mg/dL 8.1-9.9 Total Protein 6.4 GM/DL 6.2-8.1 Albumin 4.2 GM/DL 3.6-5.4 Globulin 2.2 GM/DL 2-4 Albumin/Globulin Ratio 1.9 1-3 Bilirubin Total 0.4 mg/dL 0.4-1.5 29 Alkaline Phosphatase 79 U/L 30-110 Alt (SGPT) 17 U/L 14-54 Ast (Sgot) 23 U/L 12-42 eGFR Non- 92.2 > 60 eGFR 118.6 > 60 30 Lipid Profile (Trig/Chol/HDL) 03/11/2011 Triglyceride 106 mg/dL 40-200 Cholesterol 202 mg/dL High Less Than 200 31 High Density Lipoprotein 55 mg/dL 40-60 32 Cholesterol/HDL Ratio 3.67 AVERAGE 1-4.44 Low Density Lipoprotein 126 mg/dL High Less Than 100 33 Laboratory test finding 03/11/2011 Erythrocyte Sed Rate 8 MM/HR 0-15 C Reactive Protein < 0.5 mg/dL Less Than 0.5 Rheumatoid Factor < 15 IU/mL <15 34 Lyme Disease Serology Negative Negative 35 Lakesha (Antinuclear Antibodies) 03/11/2011 Antinuclear AB NEGATIVE Negative CBC Auto Diff 03/11/2011 White Blood Count 6.5 CUMM 4.8-10.8 Red Cell Count 4.24 CUMM 4.2-5.4 Hemoglobin 12.0 g/dL 12.0-16.0 Hematocrit 35 % 35-47 Mean Corpuscular Volume 84 um3 79-97 Mean Corpuscular Hemoglob 28 pg 27-31 Mean Corpuscular HGB Cone 34 g/dL 32-36 Redcell Distribution WDTH 13 % 10.5-15 Platelet Count 290 CUMM 150-450 Mean Platelet Volume 8.4 um3 7.4-10.4 Gran % 61.8 % 38-83 Lymph % 29.2 % 25-47 Mononuclear % 8.4 % 1-9 Eosinophil % 0 % 0-6 Basophil % 0.6 % 0-2 Abs Lymphs 1.9 1.0-4.8 Abs Mononuclear 0.5 0-0.8 Absolute Neutrophil Count 4.0 1.5-7.7 Abs Eosinophils 0 0-0.6 Abs Basophils 0 0-0.2 Vad 01/14/2011 Vad Final NONREACTIVE Nonreactive 36 Vitamin D, 25 Hydroxy 04/02/2010 25-Hydroxy Vitamin D2 <4.0 ng/mL () 25-Hydroxy Vitamin D3 26 ng/mL () 25-Hydroxy Vitamin D Total 26 ng/mL () 37 Laboratory test finding 04/02/2010 Vitamin D, 1,25 Dihydroxy 29 pg/mL 18- 78 38 Laboratory test finding 08/08/2009 Cortisol 14.3 g/dL 39 Dhea Sulfate 62.1 g/dL 18-244 40 Dhea 2.6 ng/mL <10 41 Vitamin B12 703 pg/mL 180-914 Glucose 105 mg/dL High 70-100 42 Vitamin D, 25 Hydroxy 08/08/2009 25-Hydroxy Vitamin D2 <4.0 ng/mL () 25-Hydroxy Vitamin D3 27 ng/mL () 25-Hydroxy Vitamin D Total 27 ng/mL () 43 Laboratory test finding 07/31/2008 Erythrocyte Sed Rate 10 MM/HR 0-15 Lyme Disease Serology Negative Negative 44 Rheumatoid Factor < 20.0 IU/mL Less Than 20 Anti-Nuclear Antibody <0.1 U <=1.0 45 Laboratory test finding 07/31/2008 CRP High Sensitivity MML 1.4 mg/L < =3.0 46 Laboratory test finding 04/27/2008 Rast Northeast Panel (SEE NOTE) 47 Rast Peanut (SEE NOTE) 48 Rast Walnuts (SEE NOTE) 49 Laboratory test finding 04/27/2008 Rast [place] Panel (SEE NOTE) 50 Rast Peanut (SEE NOTE) 51 Rast Walnuts (SEE NOTE) 52 Rast Comprehensive Food (SEE NOTE) 53 Basic Metabolic Panel 03/14/2008 Sodium 136 mmol/L 135-145 Potassium 4.3 mmol/L 3.5-5.0 Chloride 104 mmol/L 101-111 Co2 (Carbon Dioxide) 27.0 mmol/L 22-32 Anion Gap 5.0 mmol/L 2-11 54 Glucose 100 mg/dL 70-100 55 BUN 15 mg/dL 6-24 Creatinine 0.66 mg/dL 0.50-1.40 One Over Creatinine 1.50 BUN/Creatinine Ratio 22.7 High 8-20 Calcium 9.0 mg/dL 8.1-9.9 56 Laboratory test finding 03/14/2008 Estradiol 98 pg/mL 57 FSH And LH 03/14/2008 FSH 1.98 MIU/ML 58 Lutenizing Hormone 1.34 MIU/ML 59 Laboratory test finding 03/14/2008 Rheumatoid Factor < 20.0 IU/mL Less Than 20 Lyme Disease Serology Negative Negative 60 Erythrocyte Sed Rate 11 MM/HR 0-15 C Reactive Protein 0.6 mg/dL High Less Than 0.5 Anti Dna (Double Stranded Dna) NEGATIVE Negative Protime 03/14/2008 Protime 12.3 10.9-13.3 Inr 1.03 61 CBC With Manual Diff 03/14/2008 White Blood Count 8.1 CUMM 4.8-10.8 Red Cell Count 4.45 CUMM 4.2-5.4 Hemoglobin 13.1 g/dL 12.0-16.0 Hematocrit 37 % 35-47 Mean Corpuscular Volume 84 um3 79-97 Mean Corpuscular Hemoglob 29 pg 27-31 Mean Corpuscular HGB Cone 35 g/dL 32-36 Redcell Distribution WDTH 13 % 10.5-15 Platelet Count 248 CUMM 150-450 Mean Platelet Volume 8.4 um3 7.4-10.4 Polysegmented Neutrophil 82 % 38-83 Band Neutrophil 3 % 0-8 Lymphocyte 9 % Low 25-47 Monocyte 4 % 0-13 Eosenophil 1 % 0-6 Atypical Lymph 1 % 0-6 Absolute Neutrophil Count 6.8 Anisocytosis SLIGHT Lipid Profile (Trig/Chol/HDL) 10/23/2007 Triglyceride 99 mg/dL 40-200 62 Cholesterol 165 mg/dL Less Than 200 62, 63 High Density Lipoprotein 44 mg/dL 40-60 62, 64 Cholesterol/HDL Ratio 3.75 AVERAGE 1-4.44 62 Low Density Lipoprotein 101 mg/dL High Less Than 100 62, 65 1 Would you like an EBV if Monospot is Negative?: N 2 Would you like an EBV if Monospot is Negative?: N 3 Low risk: <1.00 Average risk: 1.00-3.00 High risk: >3.00 4 Because ethnic data is not always readily available, this report includes an eGFR for both -Americans and non- Americans. The National Kidney Disease Education Program (NKDEP) does not endorse the use of the MDRD equation for patients that are not between the ages of 18 and 70, are , have extremes of body size, muscle mass, or nutritional status, or are non- or non-. According to the National Kidney Foundation, irrespective of diagnosis, the stage of the disease is based on the level of kidney function: Stage Description GFR(mL/min/1.73 m(2)) 1 Kidney damage with normal or decreased GFR 90 2 Kidney damage with mild decrease in GFR 60-89 3 Moderate decrease in GFR 30-59 4 Severe decrease in GFR 15-29 5 Kidney failure <15 (or dialysis) 5 Serologic response to B. burgdorferi infection is not detected, but cannot rule out early infection during which low or undetectable antibody levels to B. burgdorferi may be present. If clinically indicated, a new serum specimen should be submitted in 7-14 days. Test Performed by: [place] [address] Pewter Caster: Juventino Nelson II, M.D., Ph.D. 6 -- REFERENCE VALUE -- 25-HYDROXY D TOTAL (D2+D3) Optimum levels in the healthy population are 20-50, patients with bone disease may benefit from higher levels within this range. Test Performed by: [place] [address] Pewter Caster: Caleb Pisano III, M.D. 7 Because ethnic data is not always readily available, this report includes an eGFR for both -Americans and non- Americans. The National Kidney Disease Education Program (NKDEP) does not endorse the use of the MDRD equation for patients that are not between the ages of 18 and 70, are , have extremes of body size, muscle mass, or nutritional status, or are non- or non-. According to the National Kidney Foundation, irrespective of diagnosis, the stage of the disease is based on the level of kidney function: Stage Description GFR(mL/min/1.73 m(2)) 1 Kidney damage with normal or decreased GFR 90 2 Kidney damage with mild decrease in GFR 60-89 3 Moderate decrease in GFR 30-59 4 Severe decrease in GFR 15-29 5 Kidney failure <15 (or dialysis) 8 Class 0 (Negative <0.35) Test Performed by: [place] [address] Pewter Caster: Caleb Pisano III, M.D. 9 Class 0 (Negative <0.35) Test Performed by: [place] [address] Pewter Caster: Caleb Pisano III, M.D. 10 Class 0 (Negative <0.35) Test Performed by: [place] [address] Pewter Caster: Caleb Pisano III, M.D. 11 Class 0 (Negative <0.35) Test Performed by: [place] [address] Pewter Caster: Caleb Pisano III, M.D. 12 Class 0 (Negative <0.35) Test Performed by: [place] [address] Pewter Caster: Caleb Pisano III, M.D. 13 Class 0 (Negative <0.35) Test Performed by: [place] [address] Pewter Caster: Caleb Pisano III, M.D. 14 Class 0 (Negative <0.35) Test Performed by: [place] [address] Pewter Caster: Caleb Pisano III, M.D. 15 Class 0 (Negative <0.35) Test Performed by: [place] [address] Pewter Caster: Caleb Pisano III, M.D. 16 Class 0 (Negative <0.35) Test Performed by: [place] [address] Pewter Caster: Caleb Pisano III, M.D. 17 Class 0 (Negative <0.35) Test Performed by: [place] [address] Pewter Caster: Caleb Pisano III, M.D. 18 Class 0 (Negative <0.35) Test Performed by: [place] [address] Pewter Caster: Caleb Pisano III, M.D. 19 Class 0 (Negative <0.35) Test Performed by: [place] [address] Pewter Caster: Caleb Pisano III, M.D. 20 HDL Interpretation: Undesirable: High Risk: Less than 40 mg/dL Desirable: Low Risk: Greater than 60 mg/dL 21 LDL Interpretation: Low Risk Optimal Level: LDL Less than 100 mg/dL Near or Above Optimal: LDL 100-129 mg/dL Borderline High Risk: LDL 130-159 mg/dL High Risk: LDL 160-189 mg/dL Very High Risk: LDL Greater than 189 mg/dL 22 FASTING 23 -- REFERENCE VALUE -- 25-HYDROXY D TOTAL (D2+D3) Optimum levels in the normal population are 25-80 Test Performed by: [facility] [place] [address] Pewter Caster: Caleb Pisano III, M.D. 24 Because ethnic data is not always readily available, this report includes an eGFR for both -Americans and non- Americans. The National Kidney Disease Education Program (NKDEP) does not endorse the use of the MDRD equation for patients that are not between the ages of 18 and 70, are , have extremes of body size, muscle mass, or nutritional status, or are non- or non-. According to the National Kidney Foundation, irrespective of diagnosis, the stage of the disease is based on the level of kidney function: Stage Description GFR(mL/min/1.73 m(2)) 1 Kidney damage with normal or decreased GFR 90 2 Kidney damage with mild decrease in GFR 60-89 3 Moderate decrease in GFR 30-59 4 Severe decrease in GFR 15-29 5 Kidney failure <15 (or dialysis) 25 Interpretation: 10-24 (mild to moderate deficiency) -- REFERENCE VALUE -- 25-HYDROXY D TOTAL (D2+D3) Optimum levels in the normal population are 25-80 Test Performed by: [facility] Dpt of Lab Med and Pathology [address] [place] [id number] Pewter Caster: Caleb Pisano III, M.D. 26 CDC CLASSIFICATIONS FOR BLOOD LEAD CONCENTRATION SCREENING IN CHILDREN: CDC CLASS* BLOOD LEAD CONCENTRATION (MCG/DL) I LESS THAN OR EQUAL TO 9 IIA 10 - 14 IIB 15 - 19 III 20 - 44 IV 45 - 69 V GREATER THAN OR EQUAL TO 70 *REFER TO CURRENT CDC GUIDELINES FOR COMMENTS AND INTERVENTIONS RECOMMENDED FOR EACH CLASS. CERTIFICATE OF BLOOD LEAD TESTING THIS IS TO CERTIFY THAT THE ABOVE NAMED PATIENT HAS BEEN TESTED FOR BLOOD LEAD. TESTING WAS PERFORMED BY [facility] WHICH IS LICENSED BY [facility] TO PERFORM BLOOD LEAD TESTING. THIS CERTIFICATE IS PROVIDED A SERVICE TO OUR CLIENTS AND THEIR PATIENTS WHO MAY BE REQUIRED TO PRODUCE DOCUMENTATION OF BLOOD LEAD TESTING. . 27 Test Performed by: [facility] Dpt of Lab Med and Pathology [address] [place] [id number] Pewter Caster: Caleb Pisano III, M.D. 28 Anion gap measurement may be of limited value in the presence of any alkalosis, especially in a combined acid base disorder. . 29 A metabolite of Naproxen, O-desmethylnaproxen, has been shown to interfere with the Jendrassik-Ree method for measuring total bilirubin. Samples from patients who have taken Naproxen have shown spurious elevation in total bilirubin levels. 30 Because ethnic data is not always readily available, this report includes an eGFR for both -Americans and non- Americans. The National Kidney Disease Education Program (NKDEP) does not endorse the use of the MDRD equation for patients that are not between the ages of 18 and 70, are , have extremes of body size, muscle mass, or nutritional status, or are non- or non-. According to the National Kidney Foundation, irrespective of diagnosis, the stage of the disease is based on the level of kidney function: Stage Description GFR(mL/min/1.73 m(2)) 1 Kidney damage with normal or decreased GFR 90 2 Kidney damage with mild decrease in GFR 60-89 3 Moderate decrease in GFR 30-59 4 Severe decrease in GFR 15-29 5 Kidney failure <15 (or dialysis) 31 CHOLESTEROL INTERPRETATION: Desirable: Less than 200 MG/DL Borderline-High Risk: 200-239 MG/DL High-Risk: 240 MG/DL and over 32 HDL INTERPRETATION: Undesirable: High Risk: Less than 40 MG/DL Desirable: Low Risk: Greater than 60 MG/DL 33 LDL INTERPRETATION: Low Risk Optimal Level: LDL Less than 100 MG/DL Near or Above Optimal: LDL 100-129 MG/DL Borderline High Risk: LDL 130-159 MG/DL High Risk: LDL 160-189 MG/DL Very High Risk: LDL Greater than 189 MG/DL 34 Test Performed by: [facility] Dpt of Lab Med and Pathology [address] [place] [address] Pewter Caster: Caleb Pisano III, M.D. 35 Serologic response to B. burgdorferi infection is not detected, but cannot rule out early infection during which low or undetectable antibody levels to B. burgdorferi may be present. If clinically indicated, a new serum specimen should be submitted in 7-14 days. Test Performed by: [facility] Dpt of Lab Med and Pathology [address] [place] [address] Pewter Caster: Caleb Pisano III, M.D. 36 FINAL INTERPRETATION: No HIV antibody is detected. . This information has been disclosed to you from confidential records which are protected by [place] State law. State law prohibits you from making further disclosure of this information without the specific written consent of the person to whom it pertains, or as otherwise permitted by law. Any unauthorized further disclosure in violation of state law may result in a fine or half-way sentence or both. General authorization for the release of medical or other information is not, except in limited circumstances set forth in Part 63, Title 10, of [facility], sufficient authorization for further disclosure. Disclosure of confidential HIV information that occurs as the result of a general authorization for the release of medical or other information will be in violation of the state law and may result in a fine or a half-way sentence. . 37 -- REFERENCE VALUE -- 25-HYDROXY D TOTAL (D2+D3) Optimum levels in the normal population are 25-80 Test Performed by: [facility] Dpt of Lab Med and Pathology [address] [place] [address] Pewter Caster: Caleb Pisano III, M.D. 38 Test Performed by: [facility] Dpt of Lab Med and Pathology [address] [place] [address] Pewter Caster: Caleb Pisano III, M.D. 39 REFERENCE RANGE: AM 8.7-22.4 PM LESS THAN 10 . 40 Test Performed by: [facility] Dpt of Lab Med and Pathology [address] [place] [address] Pewter Caster: Caleb Pisano III, M.D. 41 Test Performed by: [facility] Dpt of Lab Med and Pathology [address] [place] [address] Pewter Caster: Caleb Pisano III, M.D. 42 Note change in reference range as of 11/25/07. The change was based on recommendations from the [place] [employer]. 43 -- REFERENCE VALUE -- 25-HYDROXY D TOTAL (D2+D3) Optimum levels in the normal population are 25-80 Test Performed by: [facility] D[facility] of Lab Med and Pathology [address] [place] [address] Pewter Caster: Caleb Pisano III, M.D. 44 Test Performed by: [facility] D[facility] of Lab Med and Pathology [address] [place] [address] Pewter Caster: Caleb Pisano III, M.D. 45 Interpretation: Negative (<=1.0) Test Performed by: [facility] D[facility] of Lab Med and Pathology [address] [place] [address] Pewter Caster: Caleb Pisano III, M.D. 46 Average risk Test Performed by: [facility] D[facility] of Lab Med and Pathology [address] [place] [address] Pewter Caster: Caleb Pisano III, M.D. 47 TEST RESULT RETURNED FROM REFERENCE LABORATORY AND HARDCOPY SENT TO PHYSICIAN(S) OFFICE. 48 TEST RESULT RETURNED FROM REFERENCE LABORATORY AND HARDCOPY SENT TO PHYSICIAN(S) OFFICE. 49 TEST RESULT RETURNED FROM REFERENCE LABORATORY AND HARDCOPY SENT TO PHYSICIAN(S) OFFICE. 50 TEST RESULT RETURNED FROM REFERENCE LABORATORY AND HARDCOPY SENT TO PHYSICIAN(S) OFFICE. 51 TEST RESULT RETURNED FROM REFERENCE LABORATORY AND HARDCOPY SENT TO PHYSICIAN(S) OFFICE. 52 TEST RESULT RETURNED FROM REFERENCE LABORATORY AND HARDCOPY SENT TO PHYSICIAN(S) OFFICE. 53 TEST RESULT RETURNED FROM REFERENCE LABORATORY AND HARDCOPY SENT TO PHYSICIAN(S) OFFICE. 54 Anion gap measurement may be of limited value in the presence of any alkalosis, especially in a combined acid base disorder. . 55 Note change in reference range as of 11/25/07. The change was based on recommendations from the [place] [employer]. 56 Please note change in reference range effective 07 . 57 EXPECTED RESULTS (pg/ml) MALES 20-75 POSTMENOPAUSAL FEMALES 20-88 NON FEMALES Mid-Follicular Phase 24-114 Periovulatory 62-534 Mid Luteal Phase 80-273 58 NORMAL RANGE MALES 1 - 20 NORMALLY MENSTRUATING FEMALES - Follicular Phase 3 - 9 - Mid-Cycle Peak 4 - 23 - Luteal Phase 1 - 6 POSTMENOPAUSAL FEMALES 16 - 114 . 59 NORMAL RANGE MALES 2 - 12 NORMALLY MENSTRUATING FEMALES - Follicular Phase 1 - 18 - Mid-Cycle Peak 24 - 105 - Luteal Phase 0.6 - 20 POSTMENOPAUSAL FEMALES 15 - 62 . 60 Test Performed by: [facility] Dpt of Lab Med and Pathology [address] [place] [address] Pewter Caster: Caleb Pisano III, M.D. 61 MARISELA VALUE=2.01 ( OF 03/12/07 Recommended INR for Patients on Oral Anticoagulants Prophylaxis 2.0 - 3.0 Treatment of thrombosis 2.0 - 3.0 Prevention of embolism 2.0 - 3.0 Prevention of embolism from prosthetic heart valves 2.5 - 3.5 62 FASTING 63 CHOLESTEROL INTERPRETATION: Desirable: Less than 200 MG/DL Borderline-High Risk: 200-239 MG/DL High-Risk: 240 MG/DL and over 64 HDL INTERPRETATION: Undesirable: High Risk: Less than 40 MG/DL Desirable: Low Risk: Greater than 60 MG/DL 65 LDL INTERPRETATION: Low Risk Optimal Level: LDL Less than 100 MG/DL Near or Above Optimal: LDL 100-129 MG/DL Borderline High Risk: LDL 130-159 MG/DL High Risk: LDL 160-189 MG/DL Very High Risk: LDL Greater than 189 MG/DL Procedures Date CPT Code Description Status 11/10/2013 49844 Treadmill Interp/Report Only Completed 11/10/2013 73619 Stress Test Supervsn W/Out I/R Completed 11/09/2013 08860 EKG Tracing & Interpretation Completed 11/09/2013 42671 EKG Tracing & Interpretation Completed 11/08/2013 27413 EKG Tracing & Interpretation Completed 04/22/2013 77956 EEG Recording Awake & Drowsy Completed 06/19/2010 75037 EKG Tracing & Interpretation Completed 05/13/2010 28646 EKG Tracing & Interpretation Completed 09/27/2009 60787 EKG Tracing & Interpretation Completed 08/16/2009 Mammogram Completed Encounters Type Date Location Provider CPT E/M Dx Office Visit 05/06/2017 9:50a [facility] [place] [address] Z00.00 Medicine - [address] R53.83 Office Visit 05/01/2017 8:50a [facility] Enzo [place], [address] R53.83 Infectious Diseases MMahsa Office Visit 04/23/2017 11:40a [facility] [place] [address] A69.20 - [place] R51 Office Visit 07/12/2015 4:00p [facility] Medicine Aleks Amanda, [address] R53.82 - Taiwo Cason Office Visit 11/22/2013 4:20p [facility] Medicine Kala Oakley M.D. 16020 401.1 - [place] Office Visit 11/09/2013 2:00p [facility] Cindy Kemp M.D. 31825 786.50 [facility] 401.1 Office Visit 11/08/2013 3:40p [facility] Medicine Kala Oakley M.D. 56219 401.9 - [place] 786.50 309.81 Office Visit 04/15/2013 1:00p [facility] Tiffani Larry M.D. 66596 780.02 Services Of [facility] Office Visit 04/04/2013 9:00a [facility] Tiffani Larry M.D. 84613 784.59 Services Of [facility] 781.0 346.70 300.00 Office Visit 01/20/2013 1:00p [facility] Internal Medicine - Sharri Edwards, N.P. [address] 311 [place] 723.1 Office Visit 11/05/2012 3:00p [facility] Medicine Sharri Edwards, N.P. [address] 780.39 - [place] 311 309.81 729.1 268.9 272.0 346.00 V76.12 V70.9 238.2 727.1 524.60 Office Visit 10/28/2012 2:00p [facility] Medicine Sharri [place] [address] 780.39 - [place] 311 309.81 729.1 V77.1 V77.91 Office Visit 09/09/2012 3:30p [facility] Sharri Edwards, N.P. [address] 309.81 - [place] 311 729.1 Office Visit 08/04/2012 11:20a [facility] Kimi CasasOLam 29642 729.1 786.50 Office Visit 05/21/2012 3:30p [facility] Sharri [place], N.P. [address] 724.2 - [place] 729.1 524.60 268.9 V76.10 V77.91 V77.1 Office Visit 05/04/2012 4:00p [facility] Aleks Amanda, 85046 729.1 - Taiwo Cason 783.1 268.9 Office Visit 04/13/2012 3:40p [facility] Aleks Amanda 59148 729.1 - Taiwo Cason 796.2 268.9 272.0 783.1 Office Visit 07/08/2011 2:40p [facility] At Pam Harrison, 87424 786.50 [facility] D.OLam 272.4 796.2 729.1 Office Visit 07/01/2011 9:40a [facility] Aleks Amanda, 18402 893.0 - Taiwo Cason Office Visit 01/14/2011 2:20p DO Not Use Licensing Officer At [facility], 78908 382.9 [facility] Shashank.Kimi E988.1 783.1 Office Visit 09/26/2010 3:40p DO Not Use Licensing Officer At [facility], 04975 729.1 [facility] Shashank.Kimi 780.79 Office Visit 07/15/2010 9:40a DO Not Use Licensing Officer At [facility], 07298 462 [facility] Shashank.Kimi Office Visit 06/19/2010 9:40a [facility] Pam [place], 18236 786.50 D.O. 785.1 Office Visit 05/13/2010 3:40p DO Not Use Licensing Officer At [facility], 56979 786.50 [facility] Shashank.Kimi Office Visit 10/18/2009 2:40p DO Not Use [facility] [address] 729.1 [employer] [place] Office Visit 09/27/2009 12:00p DO Not Use Licensing Officer At [facility] Kimi [place], [address] 786.51 [employer] Cason,FACP 530.81 729.1 Office Visit 08/17/2009 1:40p DO Not Use Licensing Officer At [facility] Kimi [place], 63054 268.9 [facility] Yoav,FACP 729.1 Office Visit 07/26/2009 8:45a DO Not Use Licensing Officer At Ellen Allen M.D. 67187 524.60 [facility] 729.1 Office Visit 06/22/2009 3:00p DO Not Use Licensing Officer At [facility] Kimi [place], [address] 729.1 [employer] C[employer],FACP 255.5 Office Visit 05/15/2009 11:30a DO Not Use [place] [address] 729.1 [employer] [place] 309.0 Office Visit 05/11/2009 9:00a DO Not Use [place] [address] 729.1 [facility] Office Visit 12/15/2008 3:00p DO Not Use [place] [address] 729.1 [facility] Office Visit 11/28/2008 2:00p DO Not Use Licensing [place] [address] 729.1 [facility] Office Visit 11/16/2008 11:00a DO Not Use Licensing Officer At [address]URN[address],[place] [address] 787.02 [facility] 338.4 292.0 Office Visit 10/24/2008 9:30a DO Not Use Licensing Officer At [facility] [place] [address] 780.79 [facility] Office Visit 07/20/2008 8:30a DO [place] [address] 719.47 [facility] Office Visit 06/15/2008 11:30a DO Not Use Licensing Officer At [employer],[place] [address] 729.1 [facility] Office Visit 05/03/2008 3:00p DO Not Use Licensing Officer At [facility] [place] [address] 729.1 [facility] Office Visit 03/14/2008 2:30p DO Not Use Licensing [place] [address] 338.4 [facility] Office Visit 01/26/2008 3:30p DO Not Use [place] [address] 729.1 [facility] 309.0 Office Visit 01/24/2008 9:00a DO Not Use Licensing Officer At [facility] [place] [address] 729.1 [facility] Office Visit 11/26/2007 2:00p DO Not Use Licensing [place] [address] 782.7 [facility] 729.1 625.4 Office Visit 10/19/2007 9:00a DO Not Use [place] [address] 729.1 [facility] Office Visit 09/17/2007 9:00a DO Not Use Licensing Officer At [employer],[place] [address] 729.1 [facility] Office Visit 06/08/2007 9:30a DO Not Use Licensing Officer At Inferi,[place] [address] 461.9 [facility] 729.1 Office Visit 03/03/2007 9:20a DO Not Use Licensing Officer At [place], [address]18[address] 461.9 [employer] C[employer],FACP V04.81 Office Visit 02/08/2007 3:20p DO Not Use Licensing Officer At Noe DLam [place], [address] 780.39 Molly Cason,FACP 780.52 346.00 Plan of Care Future Appointment(s):06/24/2017 3:00 pm - Denys Valle M.D. at [facility]05/21/2017 - Romulo Angeles, NPR51 HeadacheNew Medication:Baclofen 10 mgComments:It is important to stay well hydrated. The goal is at least 64 ounces of water daily.Try to limit caffeine.Try to limit over the counter analgesics such as Tylenol and ibuprofen as these can cause rebound headaches. Using an ice pack on your head when having a headache can help. Trying to limit tension and reduce stress are also important. I have prescribed the muscle relaxant that w ediscussed. This may make you tired. I am referring you to neurology for further revaluation of your symptoms.Referral:Tiffani Larry MD, [id number] Other fatigueComments:It is important to get the bloodwork done that was ordered by Loenarda Ruffin. Continue following with Dr. Herrera your appointment with Dr. Valle.
--- OUTSIDE RECORDS SUMMARY | 2017-05-25 17:06 | XMS REPORT ---
:1970 External Reference #:[id number] Author Organization [facility] Address [address] [address] Phone [phone] Care Team Providers Name Role Phone Aleks Amanda III, MD Primary Care Physician Unavailable Payers Type Date Identification Numbers Payment Provider Subscriber Medicare Primary Effective: Policy Number: Medicare Cris Blair 2012 [id number] PayID: [id number] [address] [place] [address] [facility] Part B Policy Number: [id number] Medicaid Cris Blair Group Name: 1 1 [address] PayID: [id number] [place] [address] Problems Date Description Provider Status Onset: 02/08/2007 [...] Coronary Artery Disease (CAD) Shashank kraft 50's [place], and other family members on maternal side : (age Father due to NV (+) smoker 48 Years) Father Coronary Artery Disease (CAD) 49 yo NV Onset: (age 19 Mother Hypertension Years) Mother due to NV () - age 57; no prior heart problems. (+) smoker, HTN Mother Hypercholesterolemia Mother Coronary Artery Disease (CAD) 58 yo NV Paternal Grandmother Hypertension Maternal Grandfather due to NV () - age 60's Maternal Grandmother due to NV () - age 60's Social History Type [...] Form Strength Qnty SIG Indications Ordering Provider Doxycycline 04/23/ Active Capsules 100mg 42cap si A69.20 Romulo Monohydrate 2018 s twice a day JANI Angeles x 21 days Naproxen 04/23/ Active Tablets 500mg 20tab 1 tablet R51 Romulo 2018 s with food JANI [place] by mouth twice a day as needed [...] / Active Packet 4gm mix one Herminia, Cierra 0000 packet in raji Laura and take by mouth twice a day Zinc / Active Tablets 50mg 1 tab daily Unknown 0000 (otc) B6 Natural 0000/ Active Tablets 50mg take one Unknown 0000 capsule/tab let daily by mouth D3-1000 0000/ Active Capsules 5000Unit please take Unknown 0000 1 tab daily Zyflammend / Active 2 caps Unknown 0000 daily Probiotic / Active Capsules 1 by mouth Unknown 0000 every day Cholestyramine 11/22/ Hx Packet 4gm 50uni as directed Kala Oakley, MMahsa 2016 Propranolol HCL 11/22/ Hx Caps ER 80mg 30cap 1 tab po in 401.1 Kala ROMERO 2014 - 24HR s the evening Adin MMahsa 2016 Lisinopril 11/08/ Hx Tablets 10mg 30tab 1 by mouth 401.9 Kala 2013 Roland s every day Adin Mahsa 2013 Aspir-81 11/08/ Hx Tablets 81mg 100ta 1 by mouth 401.[address] bs every day Adin MMahsa 2015 Atenolol 11/08/ Hx Tablets 25mg 90tab 1 by mouth 401.9 Kala 2013 Roland s every day Adin MMahsa 2015 Propranolol HCL 11/04/ Hx Tablets 10mg 1 by mouth Other 2014 - three times Ordering 11/22/ a daily Provider 2013 Lamotrigine 04/04/ Hx Tablets 25mg 60tab take 1 po Tiffani 2012 - s qhs x 2 Laron, 11/08/ , then M.DLam 2014 1 po bid Cyclobenzaprine 01/20/ Hx Tablets 10mg 30tab one po tid 723.1 Sharri HCL 2012 - s prn spasm Jerry, 04/04/ N.P. 2012 Ibuprofen 11/05/ Hx Tablets 200mg 100ta 3 tablets Sharri 2012 Roland bs prn Jerry, 11/05/ N.P. 2012 Cyclobenzaprine 11/05/ Hx Tablets 5mg 20tab 1 tab po 729.1 Sharri HCL 2012 - s tid prn Jerry, 01/20/ N.P. 2013 Venlafaxine HCL 09/09/ Hx Tablets 225mg 30tab 1 tab po qd Sharri ER 2012 - ER 24HR s Jerry, 10/28/ N.P. 2013 Tramadol HCL 09/09/ Hx Tablets 50mg 90tab 1 tab po q 729.1 Sharri 2012 - s 4-6 hours Jerry, 10/14/ prn; N.P. 2013 Aleve 08/04/ Hx Capsules 220mg 60cap prn Other 2012 - s Ordering 07/11/ Provider 2016 Adderall 08/04/ Hx Tablets 20mg 60tab 1 po bid Other 2012 - Ordering 11/08/ Provider 2014 Gabapentin 05/21/ Hx Capsules 300mg 90cap 300 mg po 729.1 Sharri 2012 - s qd x1 day, Jerry, 08/04/ then 300 mg N.P. 2013 po bid x1 day, then 300 mg po tid Cyclobenzaprine 05/21/ Hx Tablets 5mg 30tab 1 tab po 524.60 Sharri HCL 2012 - s qhs Jerry, 08/04/ N.P. 2013 Ergocalciferol 05/21/ Hx Capsules [id number] 12cap 1 cap po q1 268.9 Sharri 2012 - week for 2 Jerry, 08/04/ months then N.P. 2013 2x/mon Butrans 04/13/ Hx Patches 10mcg/HR 4unit apply 1 Aleks Payne 2012 - s patch Treasure, 08/04/ weekly M.D. 2013 Prazosin HCL 06/30/ Hx Capsules 1mg 1 po tid Aleks Payne 2012 - Treasure, 06/30/ M.D. 2012 Ibuprofen 01/14/ Hx Tablets 600mg 45tab tid 382.9 Nakul 2010 - s Pachikara 04/13/ , M.D. 2013 Amoxicillin 07/15/ Hx Capsules 500mg 30cap 1 tid for 462 Aleks Payne 2010 - s 10 days Treasure, 09/26/ M.D. 2011 Duragesic-25 10/10/ Hx Patches 25mcg/HR 10uni apply Noe 2009 - 72HR ts topically D. Marly, 01/16/ change q3 M.D.,FACP 2010 days Use with 12mcg patch Duragesic-12 10/10/ Hx Patches 12mcg/HR 10uni topical q3d Noe 2009 - 72HR ts with 25 mcg D. [place], 01/14/ patch M.D.,FACP 2010 Duragesic-50 10/03/ Hx Patches 50mcg/HR 10uni apply 729.1 Noe 2009 - 72HR ts topically D. [place], 10/10/ q3days M.D.,FACP 2010 Clonidine HCL 09/27/ Hx Tablets 0.1mg 60tab 1 po bid Noe 2009 Roland Luke, 05/13/ M.D.,FACP 2011 Omeprazole 09/27/ Hx Capsules 20mg 30cap 1 po qd for 530.81 Noe michelle 2 wks then Kimi Luke, 05/13/ prn M.D.,FACP 2010 Savella Titration 09/27/ Hx Misc 12.5& 1pak as directed 729.1 Ravi Turcios 2009 - 25&50 samples Kimi Luke, 10/17/ mg M.D.,FACP 2010 Tramadol HCL 09/25/ Hx Tablets 50mg 100ta PO qid prn 729.1 Noe Luke, 05/13/ M.D.,FACP 2011 Duragesic-12 09/07/ Hx Patches 12mcg/HR 10uni topical q3d Noe 2009 - 72HR ts with 25 mcg Kimi Luke, 09/27/ patch M.D.,FACP 2009 Adderall 08/17/ Hx Tablets 30mg 30tab 1 po daily Noe Luke, 04/13/ M.D.,FACP 2013 Vitamin D 08/17/ Hx Capsules 1000Unit 30cap 2 po qd 268.9 Noe 2009 Roland Luke, 06/30/ M.D.,FACP 2012 Duragesic-25 08/17/ Hx Patches 25mcg/HR 10uni apply 729.1 Noe 2009 - 72HR ts topically Kimi Luke, 10/03/ change q3 M.D.,FACP 2010 days Lyrica 07/30/ Hx Capsules 25mg 60cap 1 po bid Noe 2009 Roalnd Luke, 08/17/ M.D.,FACP 2009 Methadone HCL 06/14/ Hx Tablets 5mg 120ta 1-2 po bid Noe 2009 - bs prn pain Kimi Luke, 08/17/ M.D.,FACP 2010 Hydrocodone-Aceta 05/11/ Hx Tablets 10-325mg 40tab 1 q 4- 6 729.1 Ellen mariano 2010 - s hours prn Tiffany 09/25/ pain M.D. 2009 Methadone HCL 12/15/ Hx Solution 5mg/5ML 600ml 5-10mg bid 729.1 Ravi Prince 2008 - prn pain Kimi Luke, M.D.,FACP 2010 Savella 11/28/ Hx Tablets 100mg 60tab 1 bid 729.1 Noe 2008 - s Kimi Luke, .D.,FACP 2010 Zofran 11/16/ Hx Tablets 4mg 60tab 1 q 6 hours 787.02 Noe 2009 - s prn nausea Kimi Luke, .D.,FACP 2009 Methadone HCL 11/16/ Hx Tablets 5mg 90tab 1 po tid Noe 2009 - s Kimi Luke, .D.,FACP 2009 Methadone HCL 07/17/ Hx Tablets 10mg 180ta 1or 2 tabs Noe 2009 - bs tid prn Kimi Luke, pain M.D.,FACP 2010 Oxycodone HCL 06/21/ Hx Capsules 5mg 240ca 2tab q6hr 729.1 Noe 2009 - ps prn Kimi Luke, .D.,FACP 2008 Oxycontin 06/15/ Hx Tablets 20mg 60tab 1-2 q12h Noe 2009 - ER 12HR viviana Luke, .D.,FACP 2009 Oxycodone HCL 06/15/ Hx Tablets 10mg 120ta 1 q 6 hours 729.1 Noe 2008 - bs prn pain Kimi Luke, .D.,FACP 2008 Cymbalta 05/03/ Hx Caps DR 30mg 60cap po qd Noe 2008 - PA s Kimi Luke, .D.,FACP 2009 Lamictal 05/03/ Hx Tablets 25mg 2 po qd Noe [place] - Kimi Luke, .D.,FACP 2009 Methadone HCL 03/14/ Hx Tablets 10mg 120ta 1or 2 tabs 338.4 Noe 2007 - bs po tid Kimi Luke, 03/12/ M.D.,FACP 2009 Duragesic 01/04/ Hx Patches 50mcg/HR 10uni 1 patch q72 729.1 Noe 2007 - 72HR ts DLam Luke, M.D.,FACP 2008 Duragesic 12/01/ Hx Patches 25mcg/HR 10uni topical 729.1 Noe 2007 - 72HR ts q3days Kimi Luke, M.D.,FACP 2008 Ultram 10/21/ Hx Tablets 50mg 40tab 1 or 2 tabs Aleks Payne 2008 - s q 6 hours Treasure, 08/04/ prn pain M.D. 2013 Skelaxin 10/21/ Hx Tablets 800mg 90tab 1 q 8 hours Noe 2008 - s prn muscle D. Marly, 01/25/ spasms M.D.,FACP 2008 Duragesic 10/18/ Hx Patches 50mcg/HR 10uni 1 patch 729.1 Noe 2007 - 72HR ts every 72 D. Marly, 12/01/ hours M.D.,FACP 2008 Hydrocodone/Apap 09/16/ Hx Tablets 10-325mg 180ta 1 q 4 hours 729.1 Noe 2008 - bs prn pain Kimi Luke, M.D.,FACP 2010 Cephalexin 06/07/ Hx Capsules 500mg 30cap 1 tid x 10 461.9 Noe 2008 - s days Kimi Luke, 10/18/ M.D.,FACP 2008 Lyrica 06/07/ Hx Capsules 50mg 90cap 1 po tid 729.1 Noe 2008 - s Kimi Luke, 01/25/ M.D.,FACP 2008 Methadone 04/29/ Hx Tablets 10mg 12tab 1tab tid x Noe 2008 - s 2days Kimi Luke, 05/31/ M.D.,FACP 2008 1tab bid x 2days 1tab qd x 2days Lamictal 03/03/ Hx Tablets 25mg 3Mont bid Noe 2007 - h Kimi Luke, 05/03/ M.D.,FACP 2009 Amoxicillin 03/03/ Hx Capsules 500mg 40cap 2 bid for 461.9 Noe 2007 - s 10 days Kimi Luke, 05/31/ M.D.,FACP 2008 Remeron 02/08/ Hx Tablets 30mg 1 Tabs PO Noe 2006 - Q hs Kimi Luke, 06/07/ M.D.,FACP 2008 Ambien 02/08/ Hx Tablets 10mg 30tab 1 po qhs Noe 2006 - s prn sleep Kimi Luke, 06/07/ M.D.,FACP 2008 Lamictal 02/08/ Hx Tablets 25mg qd, Noe 2006 - increasing Kimi Luke, 03/03/ M.D.,FACP 2006 Ambien / Hx Tablets 10mg. 10tab 1 hs prn Noe Kmii Luke, 09/16/ M.D.,FACP 2007 Zoloft / Hx Tablets 50mg 30tab 1 PO qd Unknown 0000 - s 2007 Lunesta / Hx Unknown 0000 - 2008 Cymbalta / Hx Caps DR 60mg 1 PO qd Unknown 0000 - Part 2008 Abilify / Hx Tablets 5mg 1 po qd Unknown - 2009 Wellbutrin XL / Hx Tablets 450 90tab once qd 729.1 Unknown 0000 - ER 24HR s 2009 Savella / Hx Tablets 50mg 60tab 1 po bid 729.1 Noe Kimi Luke, 08/17/ M.D.,FACP 2009 Effexor /00/ Hx Tablets 37.5mg 3 po qd Unknown 0000 - 2010 Klonopin 00/ Hx Tablets 2mg 1/2-1 tab Unknown 0000 - up to qid 06/19/ prn 2010 Effexor XR /00/ Hx Caps ER 150mg 1 tab po qd Unknown 0000 - 24HR am 2012 Adderall 00/00/ Hx Tablets 10mg 1 by mouth Unknown 0000 - daily 2011 Valium 00/00/ Hx Tablets 10mg 10tab 1 po qd Unknown 0000 - s 2010 Multi Vitamin 00/00/ Hx Liquid 1 po qd Unknown 0000 - 2011 Remeron 00/00/ Hx Tablets 15mg 90tab 1 po hs Unknown 0000 - s 2010 Aspirin 00/00/ Hx Tablets 81mg 50tab 1 po qd Unknown 0000 - DR s 2011 Doxepin HCL 00/ Hx Capsules 25mg one po qday Unknown 0000 - 2011 Butrans 00/00/ Hx Patches 15mcg 4unit topical Unknown 0000 - Weekly s q7days 2011 Augmentin / Hx Tablets 875mg 20tab 1 po bid Unknown 0000 - s for ten 2010 Venlafaxine HCL 0000/ Hx Caps ER 150mg 30cap 1 po [...] - 24HR s po qday 2011 Aleve 00/00/ Hx Capsules 220mg 60cap 1 po bid Unknown 0000 - s prn 2011 Brainstorm /00/ Hx Unknown - 2012 Piotr Oil /00/ Hx Unknown - 2012 Alice Agus Soriano 00/00/ Hx Unknown - 2012 Naprosyn /00/ Hx Tablets 60tab 1 po bid Unknown 0000 - s 2012 Zanaflex 00/ Hx Capsules 270ca po tid prn Unknown 0000 - ps [address] / Hx Tablets 81mg 1 po qd Unknown 0000 - DR 2012 Prazosin HCL 00/ Hx Capsules 2mg 1-2 prn Unknown - 2012 Vitamin D3 High /00/ Hx Capsules 5000Unit 1 tabs Unknown Potency 0000 - daily 2012 Melatonin 00/00/ Hx Capsules 5mg 30cap 1 po qhs Unknown 0000 - s 2012 Zyprexa / Hx Solution 2.5 sublingual Unknown 0000 - Rec 2012 Temazepam 00/00/ Hx Capsules 30cap 1 po qhs Unknown 0000 - s 2012 Venlafaxine HCL 00/ Hx Tablets 150mg 90tab 1 po qd Unknown ER 0000 - ER 24HR s 2013 Clonazepam /00/ Hx Tablets 1mg 20tab 1-3 tablets Unknown 0000 - s po prn 2012 Ibuprofen /00/ Hx Tablets 200mg 100ta 3 tabs prn Unknown 0000 - bs 2015 Trazodone HCL / Hx Tablets 50mg 30tab 1 tablet at Unknown 0000 - s bedtime as 2013 Stinging [place]ettle / Hx Capsule 4 PO qd Unknown 0000 - 2013 Zyflammend / Hx 2 PO qd Unknown 0000 - 2013 Tumeric 00/ Hx 4 PO qd Unknown 0000 - 2013 [place] 3 / Hx Capsules 1000mg 100ca 1 po qd. Unknown 0000 - ps 2013 Magnesium 00/ Hx daily Unknown 0000 - 2015 Effexor XR / Hx Caps ER 75mg tapering Unknown 0000 - 24HR dose 2015 Immunizations CPT Code Status Date Vaccine Lot # [id number] Given 03/03/2007 Influenza Virus 3Yrs & Over [id number] Given Unknown Tetanus And Diptheria (Td) For Adult Use Preservative Free Vital Signs Date Vital Result Comment 05/06/2017 Height 67 inches 5'7" Weight 152.00 [...] Color Yellow Urine Appearance Clear Urine Specific [place] 1.006 Low 1.010-1.030 Urine pH 7.0 5-9 [...] 10 Chocolate Allergen IgE <0.35 kU/L 11 [place] Allergen IgE <0.35 kU/L 12 Cow's Milk Allergen IgE <0.35 kU/L 13 [place] Allergen IgE <0.35 kU/L 14 Peanut Allergen [...] g/mL 5.0-12.0 Total T3 0.62 ng/mL 0.5-1.7 CBC Auto Diff 05/04/2012 White Blood Count [...] 0-2 Nucleated Red Blood Cells % 0 Comp Metabolic Panel 05/04/2012 Sodium 133 mmol/L [...] Egfr Non- 91.8 >60 Egfr 118.0 >60 23 Laboratory test finding 05/04/2012 C Reactive Protein 0.6 mg/dL High Less than 0.5 Erythrocyte Sed Rate 17 mm/Hr High 0-14 Vitamin D, 25 Hydroxy 05/04/2012 25-Hydroxy Vitamin D2 <4.0 ng/mL 25-Hydroxy Vitamin D3 28 ng/mL 25-Hydroxy Vitamin D Total 28 ng/mL 24 Laboratory test finding 05/04/2012 TSH (Thyroid 1.61 miu/mL 0.34-5.60 Stimulating Horm) Vitamin D, 25 Hydroxy 07/08/2011 25-Hydroxy Vitamin D2 <4.0 ng/mL () 25-Hydroxy Vitamin D3 18 ng/mL () 25-Hydroxy Vitamin D Total 18 ng/mL () 25 Lead 07/08/2011 Lead < 1.0 g/dL 0-25.0 26 Lead Specimen Type VENOUS Laboratory test finding 07/08/2011 Mercury,Whole Blood <1 ng/mL 0-9 27 Laboratory test finding 03/11/2011 Erythrocyte Sed Rate 8 MM/HR 0-15 C Reactive Protein < 0.5 mg/dL Less Than 0.5 Rheumatoid Factor < 15 IU/mL <15 28 Lyme Disease Serology Negative Negative 29 Lakesha (Antinuclear Antibodies) 03/11/2011 Antinuclear AB NEGATIVE [...] Eosinophils 0 0-0.6 Abs Basophils 0 0-0.2 Lipid Profile (Trig/Chol/HDL) 03/11/2011 Triglyceride 106 mg/dL 40-200 Cholesterol 202 mg/dL High Less Than 200 30 High Density Lipoprotein 55 mg/dL 40-60 31 Cholesterol/HDL Ratio 3.67 AVERAGE 1-4.44 Low Density Lipoprotein 126 mg/dL High Less Than 100 32 Comp Metabolic Panel 03/11/2011 Sodium 138 mmol/L 135-145 Potassium 4.0 mmol/L 3.5-5.0 Chloride 105 mmol/L 101-111 Co2 (Carbon Dioxide) 26.0 mmol/L 22-32 Anion Gap 7.0 mmol/L 2-11 33 Glucose 73 mg/dL 70-100 BUN 10 mg/dL 6-24 Creatinine 0.7 mg/dL 0.50-1.40 One Over Creatinine 1.42 BUN/Creatinine Ratio 14.3 8-20 Calcium 9.4 mg/dL 8.1-9.9 Total Protein 6.4 GM/DL 6.2-8.1 Albumin 4.2 GM/DL 3.6-5.4 Globulin 2.2 GM/DL 2-4 Albumin/Globulin Ratio 1.9 1-3 Bilirubin Total 0.4 mg/dL 0.4-1.5 34 Alkaline Phosphatase 79 U/L 30-110 Alt (SGPT) 17 U/L 14-54 Ast (Sgot) 23 U/L 12-42 eGFR Non- 92.2 > 60 eGFR 118.6 > [address] Amanda's Lab Panel 03/11/2011 TSH 1.64 MIU/ML 0.34-5.60 Vad 01/14/2011 Vad Final NONREACTIVE Nonreactive 36 Laboratory test 04/02/2010 Vitamin D, 1,25 29 pg/mL 18-78 37 finding Dihydroxy Vitamin D, 25 Hydroxy 04/02/2010 25-Hydroxy Vitamin D2 <4.0 ng/mL () 25-Hydroxy Vitamin D3 26 ng/mL () 25-Hydroxy Vitamin D Total 26 ng/mL () 38 Vitamin D, 25 Hydroxy 08/08/2009 25-Hydroxy Vitamin D2 <4.0 ng/mL () 25-Hydroxy Vitamin D3 27 ng/mL () 25-Hydroxy Vitamin D Total 27 ng/mL () 39 Laboratory test finding 08/08/2009 Cortisol 14.3 g/dL 40 Dhea Sulfate 62.1 g/dL 18-244 41 Dhea 2.6 ng/mL <10 42 Vitamin B12 703 pg/mL 180-914 Glucose 105 mg/dL High 70-100 43 Laboratory test finding 07/31/2008 Erythrocyte Sed [...] 52 Rast Comprehensive Food (SEE NOTE) 53 CBC With Manual Diff 03/14/2008 White Blood [...] 0-6 Absolute Neutrophil Count 6.8 Anisocytosis SLIGHT Protime 03/14/2008 Protime 12.3 10.9-13.3 Inr 1.03 54 Laboratory test finding 03/14/2008 Rheumatoid Factor < 20.0 IU/mL Less Than 20 Lyme Disease Serology Negative Negative 55 Erythrocyte Sed Rate 11 MM/HR 0-15 C Reactive Protein 0.6 mg/dL High Less Than 0.5 Anti Dna (Double Stranded Dna) NEGATIVE Negative FSH And LH 03/14/2008 FSH 1.98 MIU/ML 56 Lutenizing Hormone 1.34 MIU/ML 57 Laboratory test finding 03/14/2008 Estradiol 98 pg/mL 58 Basic Metabolic Panel 03/14/2008 Sodium 136 mmol/L 135-145 Potassium 4.3 mmol/L 3.5-5.0 Chloride 104 mmol/L 101-111 Co2 (Carbon Dioxide) 27.0 mmol/L 22-32 Anion Gap 5.0 mmol/L 2-11 59 Glucose 100 mg/dL 70-100 60 BUN 15 mg/dL 6-24 Creatinine 0.66 mg/dL 0.50-1.40 One Over Creatinine 1.50 BUN/Creatinine Ratio 22.7 High 8-20 Calcium 9.0 mg/dL 8.1-9.9 61 Lipid Profile (Trig/Chol/HDL) 10/23/2007 Triglyceride 99 mg/dL [...] submitted in 7-14 days. Test Performed by: [place] [address] Electronics Research Engineer: Juventino Nelson II, M.D., Ph.D. 6 -- REFERENCE VALUE -- 25-HYDROXY D TOTAL (D2+D3) Optimum levels in the healthy population are 20-50, patients with bone disease may benefit from higher levels within this range. Test Performed by: [place] [address] Electronics Research Engineer: Caleb Pisano III, M.D. 7 Because ethnic [...] Class 0 (Negative <0.35) Test Performed by: [place] [address] Electronics Research Engineer: Caleb Pisano III, M.D. 9 Class 0 (Negative <0.35) Test Performed by: [place] [address] Electronics Research Engineer: Caleb Pisano III, M.D. 10 Class 0 (Negative <0.35) Test Performed by: [place] [address] Electronics Research Engineer: Caleb Pisano III, M.D. 11 Class 0 (Negative <0.35) Test Performed by: [place] [address] Electronics Research Engineer: Caleb Pisano III, M.D. 12 Class 0 (Negative <0.35) Test Performed by: [place] [address] Electronics Research Engineer: Caleb Pisano III, M.D. 13 Class 0 (Negative <0.35) Test Performed by: [place] [address] Electronics Research Engineer: Caleb Pisano III, M.D. 14 Class 0 (Negative <0.35) Test Performed by: [place] [address] Electronics Research Engineer: Caleb Pisano III, M.D. 15 Class 0 (Negative <0.35) Test Performed by: [place] [address] Electronics Research Engineer: Caleb Pisano III, M.D. 16 Class 0 (Negative <0.35) Test Performed by: [place] [address] Electronics Research Engineer: Caleb Pisano III, M.D. 17 Class 0 (Negative <0.35) Test Performed by: [place] [address] Electronics Research Engineer: Caleb Pisano III, M.D. 18 Class 0 (Negative <0.35) Test Performed by: [place] [address] Electronics Research Engineer: Caleb Pisano III, M.D. 19 Class 0 (Negative <0.35) Test Performed by: [place] [address] Electronics Research Engineer: Caleb Pisano III, M.D. 20 HDL Interpretation: Undesirable: High Risk: Less than 40 mg/dL Desirable: Low Risk: Greater than 60 mg/dL 21 LDL Interpretation: Low Risk Optimal Level: LDL Less than 100 mg/dL Near or Above Optimal: LDL 100-129 mg/dL Borderline High Risk: LDL 130-159 mg/dL High Risk: LDL 160-189 mg/dL Very High Risk: LDL Greater than 189 mg/dL 22 FASTING 23 Because ethnic data is not always readily [...] 15-29 5 Kidney failure <15 (or dialysis) 24 -- REFERENCE VALUE -- 25-HYDROXY D TOTAL (D2+D3) Optimum levels in the normal population are 25-80 Test Performed by: [place] [address] Electronics Research Engineer: Caleb Pisano III, M.D. 25 Interpretation: 10-24 (mild to moderate deficiency) -- REFERENCE VALUE -- 25-HYDROXY D TOTAL (D2+D3) Optimum levels in the normal population are 25-80 Test Performed by: [facility] D[facility] Med and Pathology [address] [place] [address] Electronics Research Engineer: Caleb Pisano III, M.D. 26 CDC CLASSIFICATIONS [...] FOR BLOOD LEAD. TESTING WAS PERFORMED BY [facility] AT [facility] WH[facility] IS LICENSED BY [facility] TO PERFORM BLOOD LEAD TESTING. THIS CERTIFICATE IS PROVIDED A SERVICE TO OUR CLIENTS AND THEIR PATIENTS WHO MAY BE REQUIRED TO PRODUCE DOCUMENTATION OF BLOOD LEAD TESTING. . 27 Test Performed by: [facility] [address] [place] [address] Electronics Research Engineer: Caleb Pisano III, M.D. 28 Test Performed by: [facility] [address] [place] [address] Electronics Research Engineer: Caleb Pisano III, M.D. 29 Serologic response to B. burgdorferi infection is not detected, but cannot rule out early infection during which low or undetectable antibody levels to B. burgdorferi may be present. If clinically indicated, a new serum specimen should be submitted in 7-14 days. Test Performed by: [facility] [address] [place] [address] Electronics Research Engineer: Caleb Pisano III, M.D. 30 CHOLESTEROL INTERPRETATION: Desirable: Less than 200 MG/DL Borderline-High Risk: 200-239 MG/DL High-Risk: 240 MG/DL and over 31 HDL INTERPRETATION: Undesirable: High Risk: Less than 40 MG/DL Desirable: Low Risk: Greater than 60 MG/DL 32 LDL INTERPRETATION: Low Risk Optimal Level: LDL Less than 100 MG/DL Near or Above Optimal: LDL 100-129 MG/DL Borderline High Risk: LDL 130-159 MG/DL High Risk: LDL 160-189 MG/DL Very High Risk: LDL Greater than 189 MG/DL 33 Anion gap measurement may be of limited value in the presence of any alkalosis, especially in a combined acid base disorder. . 34 A metabolite of Naproxen, O-desmethylnaproxen, has been shown to interfere with the Jendrassik-Brady method for measuring total bilirubin. Samples from patients who have taken Naproxen have shown spurious elevation in total bilirubin levels. 35 Because ethnic data is not always readily [...] 15-29 5 Kidney failure <15 (or dialysis) 36 FINAL INTERPRETATION: No HIV antibody is detected. . This information has been disclosed to you from confidential records which are protected by [facility] law. State law prohibits you from making further disclosure of this information without the specific written consent of the person to whom it pertains, or as otherwise permitted by law. Any unauthorized further disclosure in violation of state law may result in a fine or alf sentence or both. General authorization for the release of medical or other information is not, except in limited circumstances set forth in Part 63, Title 10, of [facility], sufficient authorization for further disclosure. Disclosure of confidential HIV information that occurs as the result of a general authorization for the release of medical or other information will be in violation of the state law and may result in a fine or a alf sentence. . 37 Test Performed by: [facility] Med [facility] Pathology [address] [place] [address] Electronics Research Engineer: Caleb Pisano III, M.D. 38 -- REFERENCE VALUE -- 25-HYDROXY D TOTAL (D2+D3) Optimum levels in the normal population are 25-80 Test Performed by: [facility] [address] [place] [address] Electronics Research Engineer: Caleb Pisano III, M.D. 39 -- REFERENCE VALUE -- 25-HYDROXY D TOTAL (D2+D3) Optimum levels in the normal population are 25-80 Test Performed by: [facility] Med [facility] Path[facility] [address] [place] [address] Electronics Research Engineer: Caleb Pisano III, M.D. 40 REFERENCE RANGE: AM 8.7-22.4 PM LESS THAN 10 . 41 Test Performed by: [facility] [address] [place] [address] Electronics Research Engineer: Caleb Pisano III, M.D. 42 Test Performed by: [facility] [address] [place] [address] Electronics Research Engineer: Caleb Pisano III, M.D. 43 Note change in reference range as of 11/25/07. The change was based on recommendations from the [place] [employer]. 44 Test Performed by: [facility] Med [facility] Pathology [address] [place] [address] Electronics Research Engineer: Caleb Pisano III, M.D. 45 Interpretation: Negative (<=1.0) Test Performed by: [facility] [address] [place] [address] Electronics Research Engineer: Caleb Pisano III, M.D. 46 Average risk Test Performed by: [facility] [address] [place] [address] Electronics Research Engineer: Caleb Pisano III, M.D. 47 TEST RESULT [...] AND HARDCOPY SENT TO PHYSICIAN(S) OFFICE. 54 MARISELA VALUE=2.01 ( OF 03/12/07 Recommended INR for Patients on Oral Anticoagulants Prophylaxis 2.0 - 3.0 Treatment of thrombosis 2.0 - 3.0 Prevention of embolism 2.0 - 3.0 Prevention of embolism from prosthetic heart valves 2.5 - 3.5 55 Test Performed by: [facility] Med [facility] Path[facility] [address] [place] [address] Electronics Research Engineer: Caleb Pisano III, M.D. 56 NORMAL RANGE MALES 1 - 20 NORMALLY MENSTRUATING FEMALES - Follicular Phase 3 - 9 - Mid-Cycle Peak 4 - 23 - Luteal Phase 1 - 6 POSTMENOPAUSAL FEMALES 16 - 114 . 57 NORMAL RANGE MALES 2 - 12 NORMALLY MENSTRUATING FEMALES - Follicular Phase 1 - 18 - Mid-Cycle Peak 24 - 105 - Luteal Phase 0.6 - 20 POSTMENOPAUSAL FEMALES 15 - 62 . 58 EXPECTED RESULTS (pg/ml) MALES 20-75 POSTMENOPAUSAL FEMALES 20-88 NON FEMALES Mid-Follicular Phase 24-114 Periovulatory 62-534 Mid Luteal Phase 80-273 59 Anion gap measurement may be of limited value in the presence of any alkalosis, especially in a combined acid base disorder. . 60 Note change in reference range as of 11/25/07. The change was based on recommendations from the [place] [employer]. 61 Please note change in reference range effective 07 . 62 FASTING 63 CHOLESTEROL INTERPRETATION: Desirable: Less [...] Procedures Date CPT Code Description Status 11/10/2013 72865 Treadmill Interp/Report Only Completed 11/10/2013 92558 Stress Test Supervsn W/Out I/R Completed 11/09/2013 05579 EKG Tracing & Interpretation Completed 11/09/2013 27204 EKG Tracing & Interpretation Completed 11/08/2013 31165 EKG Tracing & Interpretation Completed 04/22/2013 08445 EEG Recording Awake & Drowsy Completed 06/19/2010 15384 EKG Tracing & Interpretation Completed 05/13/2010 70040 EKG Tracing & Interpretation Completed 09/27/2009 04823 EKG Tracing & Interpretation Completed 08/16/2009 Mammogram Completed Encounters Type Date Location Provider CPT E/M Dx [facility] 59418 R53.83 8:50a Infectious Diseases Yoav Orellana Office Visit 04/23/2017 [facility] [place] [address] A69.20 11:40a - Taiwo R51 Office Visit 07/12/2015 4:00p [facility] Aleks Amanda, 14491 R53.82 - Taiwo Cason Office Visit 11/22/2013 4:20p [facility] Kala Oakley M.D. 15137 401.1 - [place] Office Visit 11/09/2013 2:00p [facility] Cindy Kemp M.D. 34795 786.50 [facility] 401.1 Office Visit 11/08/2013 3:40p [facility] Kala Oakley M.D. 00770 401.9 - [place] 786.50 309.81 Office Visit 04/15/2013 1:00p [facility] Tiffani Larry M.D. 94101 780.02 [facility] Office Visit 04/04/2013 9:00a [facility] Tiffani Larry M.D. 16712 784.59 [facility] 781.0 346.70 300.00 Office Visit 01/20/2013 1:00p [facility] - Sharri Edwards, N.P. 74867 311 [place] 723.1 Office Visit 11/05/2012 3:00p [facility] Sharri Edwards N.P. 38459 780.39 - [place] 311 309.81 729.1 268.9 272.0 346.00 V76.12 V70.9 238.2 727.1 524.60 Office Visit 10/28/2012 2:00p [facility] Sharri Edwards, N.P. 87757 780.39 - [place] 311 309.81 729.1 V77.1 V77.91 Office Visit 09/09/2012 3:30p [facility] Sharri Edwards, N.P. 33213 309.81 - [place] 311 729.1 Office Visit 08/04/2012 11:20a [facility] Pam Harrison D.O. 03571 729.1 786.50 Office Visit 05/21/2012 3:30p [facility] Sharri Edwards, N.P. 60658 724.2 - [place] 729.1 524.60 268.9 V76.10 V77.91 V77.1 Office Visit 05/04/2012 4:00p [facility] Aleks Amanda, 00895 729.1 - Taiwo Cason 783.1 268.9 Office Visit 04/13/2012 3:40p [facility] Aleks Amanda, 19554 729.1 - Taiwo Cason 796.2 268.9 272.0 783.1 Office Visit 07/08/2011 2:40p [facility] Pam Harrison, 47574 786.50 [facility] D.OLam 272.4 796.2 729.1 Office Visit 07/01/2011 9:40a [facility] Aleks Amanda, 23869 893.0 - Taiwo Cason Office Visit 01/14/2011 2:20p DO Not Use Travel Coordinator At Nakul Amezcua, 50370 382.9 Molly Cason E988.1 783.1 Office Visit 09/26/2010 3:40p DO Not Use Travel Coordinator At Aleks Amanda, 65228 729.1 Molly Cason 780.79 Office Visit 07/15/2010 9:40a DO Not Use Travel Coordinator At Aleks Amanda, 36787 462 Molly Cason Office Visit 06/19/2010 9:40a [facility] Pam Harrison, 04300 786.50 D.O. 785.1 Office Visit 05/13/2010 3:40p DO Not Use Travel Coordinator At Aleks Kerry Amanda, 50220 786.50 [facility] M.D. Office Visit 10/18/2009 2:40p DO Not Use Travel Coordinator At Aleks Kerry Amanda, 72936 729.1 [facility] M.D. Office Visit 09/27/2009 12:00p DO Not Use Travel Coordinator At [facility], 70851 786.51 [facility].D.,FACP 530.81 729.1 Office Visit 08/17/2009 1:40p DO Not Use Travel Coordinator At [facility], 44769 268.9 [facility].Kimi,FACP 729.1 Office Visit 07/26/2009 8:45a DO Not Use Travel Coordinator At Ellen Allen M.D. 71506 524.60 [facility] 729.1 Office Visit 06/22/2009 3:00p DO Not Use Travel Coordinator At [facility] 75783 729.1 [facility].Kimi,FACP 255.5 Office Visit 05/15/2009 11:30a DO Not Use [place] [address] 729.1 [facility] 309.0 Office Visit 05/11/2009 9:00a DO Not Use [place] [address] 729.1 [facility] Office Visit 12/15/2008 3:00p DO Not Use [place] [address] 729.1 [facility] Office Visit 11/28/2008 2:00p DO Not Use [place] [address] 729.1 [facility] Office Visit 11/16/2008 11:00a DO Not Use [place] [address] 787.02 [facility] 338.4 292.0 Office Visit 10/24/2008 9:30a DO Not Use [place] [address] 780.79 [facility] Office Visit 07/20/2008 8:30a DO Not Use [facility] [place] [address] 719.47 [facility] Office Visit 06/15/2008 11:30a DO Not Use [facility] [address] 729.1 [facility] Office Visit 05/03/2008 3:00p DO Not Use [facility] [place] [address] 729.1 [facility] Office Visit 03/14/2008 2:30p DO Not Use [facility] [address] 338.4 [facility] Office Visit 01/26/2008 3:30p DO Not Use [facility] [place] [address] 729.1 [facility] 309.0 Office Visit 01/24/2008 9:00a DO Not Use [facility] [address] 729.1 [facility] Office Visit 11/26/2007 2:00p DO Not [place] [address] 782.7 [facility] 729.1 625.4 Office Visit 10/19/2007 9:00a DO Not Use [facility] [place] [address] 729.1 [facility] Office Visit 09/17/2007 9:00a DO Not Use [facility] [place] [address] 729.1 [facility] Office Visit 06/08/2007 9:30a DO Not Use [facility] [address] 461.9 [facility] 729.1 Office Visit 03/03/2007 9:20a DO Not Use Travel Coordinator At Noe Luke, 66855 461.9 Molly Cason,FACP V04.81 Office Visit 02/08/2007 3:20p DO Not Use Travel Coordinator At Noe Lkue, 46016 780.39 Molly Cason,FACP 780.52 346.00 Plan of Care Future Appointment(s):05/21/2017 10:20 am - Romulo Angeles NP at [facility] - Nhsunjmig44/31/2018 - Mariaelena Ruffin, JANIZ00.00 Encntr for general adult medical exam w/o abnormal findingsComments:[facility] for [facility] and pap smearDrink plenty of fluids eat fresh fruits and vegetablesUse sun screen when outside to prevent skin cancer/ burningFollow up:Print [facility] for patient Physical in 1 yearR53.83 Other fatigueComments:I have ordered non fasting blood work that you can have done today.I will notify you of the resultsI will refer you to Dr Huber: Denys Valle MD, Rheumatology
--- OUTSIDE RECORDS SUMMARY | 2017-05-25 17:07 | XMS REPORT ---
:1970 External Reference #:[id number] Author Organization [facility] Address [address] [address] Phone [phone] Care Team Providers Name Role Phone Aleks Amanda III, MD Primary Care Physician Unavailable Payers Type Date Identification Numbers Payment Provider Subscriber Medicare Primary Effective: Policy Number: Medicare Cris Blair 2012 [id number] PayID: [id number] [address] [place] [address] [facility] Part B Policy Number: [id number] Medicaid Cris Blair Group Name: 1 1 [address] PayID: [id number] [place] [address] Problems Date Description Provider Status Onset: 02/08/2007 [...] Coronary Artery Disease (CAD) Shashank kraft 50's OR, and other family members on maternal side : (age Father due to OR (+) smoker 48 Years) Father Coronary Artery Disease (CAD) 49 yo OR Onset: (age 19 Mother Hypertension Years) Mother due to OR () - age 57; no prior heart problems. (+) smoker, HTN Mother Hypercholesterolemia Mother Coronary Artery Disease (CAD) 58 yo [place] Paternal Grandmother Hypertension Maternal Grandfather due to OR () - age 60's Maternal Grandmother due to OR () - age 60's Social History Type Date Description Comments Marital Status Single Occupation currently not working Cigarette Use Never Smoked Cigarettes ETOH Use Rarely consumes alcohol Recreational Drug Use Denies Drug Use Smoking Patient has never smoked Daily Caffeine Consumes on average 1 cup of regular coffee per day Enjoy Exercising Does not enjoy exercising Exercise Type/Frequency Exercises regularly occasionally walking/ tennis General Hx Text 1 daughter Allergies, Adverse [...] 08/04/ N.P. 2013 Ergocalciferol 05/21/ Hx Capsules 09731Jyna 12cap 1 cap po q1 268.9 Sharri 2012 - week for 2 Jerry, 08/04/ months then N.P. 2013 2x/mon Butrans 04/13/ Hx Patches 10mcg/HR 4unit apply 1 Aleks Payne 2012 - s patch [place], 08/04/ weekly M.D. 2013 Prazosin HCL 06/30/ Hx Capsules 1mg 1 po tid Aleks Payne 2012 - [place], 06/30/ M.D. 2012 Ibuprofen 01/14/ Hx Tablets 600mg 45tab tid 382.9 [place] 2010 - s [place] 04/13/ , M.D. [...] - 72HR ts with 25 mcg D. [place], 01/14/ patch M.D.,FACP 2010 Duragesic-50 10/03/ Hx Patches 50mcg/HR 10uni apply 729.1 Noe 2009 - 72HR ts topically D. [place], 10/10/ q3days M.D.,FACP 2010 Clonidine HCL 09/27/ [...] bid Noe 2009 Roland Luke, 08/17/ M.D.,FACP 2009 Methadone HCL 06/14/ [...] Tablets 10mg. 10tab 1 hs prn Noe Kimi Luke, 09/16/ M.D.,FACP 2007 Zoloft / [...] 4 PO qd Unknown 0000 - 2013 Doyle 3 / Hx Capsules 1000mg 100ca 1 po qd. Unknown 0000 - ps 2013 Magnesium 00/ Hx daily Unknown 0000 - 2015 Effexor XR / Hx Caps ER 75mg tapering Unknown 0000 - 24HR dose 2015 Immunizations CPT Code Status Date Vaccine Lot # [id number] Given 03/03/2007 Influenza Virus 3Yrs & Over [id number] Given Unknown Tetanus And Diptheria (Td) For Adult Use Preservative Free Vital Signs Date Vital Result Comment 05/01/2017 Height 66 inches 5'6" Weight 152.00 [...] Color Yellow Urine Appearance Clear Urine Specific [place] 1.006 Low 1.010-1.030 Urine pH 7.0 5-9 [...] 10 Chocolate Allergen IgE <0.35 kU/L 11 [place] Allergen IgE <0.35 kU/L 12 Cow's Milk Allergen IgE <0.35 kU/L 13 [place] Allergen IgE <0.35 kU/L 14 Peanut Allergen [...] 1,25 Dihydroxy 29 pg/mL 18- 78 38 Vitamin D, 25 Hydroxy 08/08/2009 25-Hydroxy [...] submitted in 7-14 days. Test Performed by: [address] [address] Gluing Crew Leader: Juventino Nelson II, M.D., Ph.D. 6 -- REFERENCE VALUE -- 25-HYDROXY D TOTAL (D2+D3) Optimum levels in the healthy population are 20-50, patients with bone disease may benefit from higher levels within this range. Test Performed by: [place] [address] Gluing Crew Leader: Caleb Pisano III, M.D. 7 Because ethnic [...] Class 0 (Negative <0.35) Test Performed by: [place] [address] Gluing Crew Leader: Caleb Pisano III, M.D. 9 Class 0 (Negative <0.35) Test Performed by: [place] [address] Gluing Crew Leader: Caleb Pisano III, M.D. 10 Class 0 (Negative <0.35) Test Performed by: [address] [address] Gluing Crew Leader: Caleb Pisano III, M.D. 11 Class 0 (Negative <0.35) Test Performed by: [place] [address] Gluing Crew Leader: Caleb Pisano III, M.D. 12 Class 0 (Negative <0.35) Test Performed by: [place] [address] Gluing Crew Leader: Caleb Pisano III, M.D. 13 Class 0 (Negative <0.35) Test Performed by: [place] [address] Gluing Crew Leader: Caleb Pisano III, M.D. 14 Class 0 (Negative <0.35) Test Performed by: [place] [address] Gluing Crew Leader: Caleb Pisano III, M.D. 15 Class 0 (Negative <0.35) Test Performed by: [place] [address] Gluing Crew Leader: Caleb Pisano III, M.D. 16 Class 0 (Negative <0.35) Test Performed by: [place] [address] Gluing Crew Leader: Caleb Pisano III, M.D. 17 Class 0 (Negative <0.35) Test Performed by: [place] [address] Gluing Crew Leader: Caleb Pisano III, M.D. 18 Class 0 (Negative <0.35) Test Performed by: [place] [address] Gluing Crew Leader: Caleb Pisano III, M.D. 19 Class 0 (Negative <0.35) Test Performed by: [place] [address] Gluing Crew Leader: Caleb Pisano III, M.D. 20 HDL Interpretation: [...] normal population are 25-80 Test Performed by: [place] [address] Gluing Crew Leader: Caleb Pisano III, M.D. 25 Interpretation: 10-24 (mild to moderate deficiency) -- REFERENCE VALUE -- 25-HYDROXY D TOTAL (D2+D3) Optimum levels in the normal population are 25-80 Test Performed by: [facility] D[facility] Med [facility] Pathology [address] [place] [address] Gluing Crew Leader: Caleb Pisano III, M.D. 26 CDC CLASSIFICATIONS [...] FOR BLOOD LEAD. TESTING WAS PERFORMED BY [facility] WHICH IS LICENSED BY [facility] TO PERFORM BLOOD LEAD TESTING. THIS CERTIFICATE IS PROVIDED A SERVICE TO OUR CLIENTS AND THEIR PATIENTS WHO MAY BE REQUIRED TO PRODUCE DOCUMENTATION OF BLOOD LEAD TESTING. . 27 Test Performed by: [facility] [address] [place] [address] Gluing Crew Leader: Caleb Pisano III, M.D. 28 Test Performed by: [facility] [address] [place] [address] Gluing Crew Leader: Caleb Pisano III, M.D. 29 Serologic response to B. burgdorferi infection is not detected, but cannot rule out early infection during which low or undetectable antibody levels to B. burgdorferi may be present. If clinically indicated, a new serum specimen should be submitted in 7-14 days. Test Performed by: [facility] [address] [place] [address] Gluing Crew Leader: Caleb Pisano III, M.D. 30 CHOLESTEROL INTERPRETATION: [...] from confidential records which are protected by [place] State law. State law prohibits you from making further disclosure of this information without the specific written consent of the person to whom it pertains, or as otherwise permitted by law. Any unauthorized further disclosure in violation of state law may result in a fine or shelter sentence or both. General authorization for the release of medical or other information is not, except in limited circumstances set forth in Part 63, Title 10, of [facility], sufficient authorization for further disclosure. Disclosure of confidential HIV information that occurs as the result of a general authorization for the release of medical or other information will be in violation of the state law and may result in a fine or a shelter sentence. . 37 -- REFERENCE VALUE -- 25-HYDROXY D TOTAL (D2+D3) Optimum levels in the normal population are 25-80 Test Performed by: [facility] [address] [place] [address] Gluing Crew Leader: Caleb Pisano III, M.D. 38 Test Performed by: [facility] [address] [place] [address] Gluing Crew Leader: Caleb Pisano III, M.D. 39 -- REFERENCE VALUE -- 25-HYDROXY D TOTAL (D2+D3) Optimum levels in the normal population are 25-80 Test Performed by: [facility] [address] [place] [address] Gluing Crew Leader: Caleb Pisano III, M.D. 40 REFERENCE RANGE: AM 8.7-22.4 PM LESS THAN 10 . 41 Test Performed by: [facility] [address] [place] [address] Gluing Crew Leader: Caleb Pisano III, M.D. 42 Test Performed by: [facility] [address] [place] [address] Gluing Crew Leader: Caleb Pisano III, M.D. 43 Note change in reference range as of 11/25/07. The change was based on recommendations from the [place] [employer]. 44 Test Performed by: [facility] [address] [place] [address] Gluing Crew Leader: Caleb Pisano III, M.D. 45 Interpretation: Negative (<=1.0) Test Performed by: [facility] [address] [place] [address] Gluing Crew Leader: Caleb Pisano III, M.D. 46 Average risk Test Performed by: [facility] [address] [place] [address] Gluing Crew Leader: Caleb Pisano III, M.D. 47 TEST RESULT [...] 2.5 - 3.5 55 Test Performed by: [facility] [address] [place] [address] Gluing Crew Leader: Caleb Pisano III, M.D. 56 NORMAL RANGE [...] change was based on recommendations from the [place] [employer]. 61 Please note change in [...] Procedures Date CPT Code Description Status 11/10/2013 64754 Treadmill Interp/Report Only Completed 11/10/2013 87637 Stress Test Supervsn W/Out I/R Completed 11/09/2013 60371 EKG Tracing & Interpretation Completed 11/09/2013 81510 EKG Tracing & Interpretation Completed 11/08/2013 74144 EKG Tracing & Interpretation Completed 04/22/2013 58516 EEG Recording Awake & Drowsy Completed 06/19/2010 33115 EKG Tracing & Interpretation Completed 05/13/2010 17703 EKG Tracing & Interpretation Completed 09/27/2009 39891 EKG Tracing & Interpretation Completed 08/16/2009 Mammogram Completed Encounters Type Date Location Provider CPT E/M Dx Office Visit 04/23/2017 11:40a [facility] [place] [address] A69.20 [place] R51 Office Visit 07/12/2015 4:00p [facility] Aleks Amanda, 16582 R53.82 - Taiwo Cason Office Visit 11/22/2013 4:20p [facility] Kala Oakley M.D. 34555 401.1 - [place] Office Visit 11/09/2013 2:00p [facility] Cindy Kemp M.D. 66076 786.50 [facility] 401.1 Office Visit 11/08/2013 3:40p [facility] Kala Oakley M.D. 49834 401.9 - [place] 786.50 309.81 Office Visit 04/15/2013 1:00p [facility] Tiffani Larry M.D. 70756 780.02 [facility] Office Visit 04/04/2013 9:00a [facility] Tiffani Larry M.D. 60353 784.59 [facility] 781.0 346.70 300.00 Office Visit 01/20/2013 1:00p [facility] - Sharri Edwards, N.P. 38022 311 [place] 723.1 Office Visit 11/05/2012 3:00p [facility] Sharri Edwards, N.P. 02666 780.39 - [place] 311 309.81 729.1 268.9 272.0 346.00 V76.12 V70.9 238.2 727.1 524.60 Office Visit 10/28/2012 2:00p [facility] Sharri Edwards, N.P. 27839 780.39 - [place] 311 309.81 729.1 V77.1 V77.91 Office Visit 09/09/2012 3:30p [facility] Sharri Edwards, N.P. 61750 309.81 - [place] 311 729.1 Office Visit 08/04/2012 11:20a [facility] Lin Casas.OLam 28256 729.1 786.50 Office Visit 05/21/2012 3:30p [facility] Sharri Edwards, N.P. 27366 724.2 - [place] 729.1 524.60 268.9 V76.10 V77.91 V77.1 Office Visit 05/04/2012 4:00p [facility] Aleks Amanda, 68223 729.1 - Taiwo Cason 783.1 268.9 Office Visit 04/13/2012 3:40p [facility] Aleks Amanda, 47754 729.1 - Taiwo Cason 796.2 268.9 272.0 783.1 Office Visit 07/08/2011 2:40p [facility] Pam Harrison, 53865 786.50 [facility] D.O. 272.4 796.2 729.1 Office Visit 07/01/2011 9:40a [facility] Aleks Amanda, 13288 893.0 - Taiwo Cason Office Visit 01/14/2011 2:20p DO Not Use Miter Operator At [facility], 61376 382.9 Molly Encarnacion.Kimi E988.1 783.1 Office Visit 09/26/2010 3:40p DO Not Use Miter Operator At Aleks Amanda, 97201 729.1 Molly Encarnacion.Kimi 780.79 Office Visit 07/15/2010 9:40a DO Not Use Miter Operator At Aleks Amanda, 33771 462 Molly Cason Office Visit 06/19/2010 9:40a [facility] Pam Harrison, 87638 786.50 D.O. 785.1 Office Visit 05/13/2010 3:40p DO Not Use Miter Operator At Aleks Amanda, 50904 786.50 Molly Cason Office Visit 10/18/2009 2:40p DO Not Use Miter Operator At Aleks Amanda, 55212 729.1 [facility] Office Visit 09/27/2009 12:00p DO Not Use Miter Operator At Noe [place]. [place], 06274 786.51 [facility] Yoav,FACP 530.81 729.1 Office Visit 08/17/2009 1:40p DO Not Use Miter Operator At Noe D. [place], 11795 268.9 [facility] Yoav,FACP 729.1 Office Visit 07/26/2009 8:45a DO Not Use Miter Operator At Ellen Allen M.D. 54591 524.60 [facility] 729.1 Office Visit 06/22/2009 3:00p DO Not Use Miter Operator At Noe D. [place], 41957 729.1 [place] Cason,FACP 255.5 Office Visit 05/15/2009 11:30a DO Not Use [place] [address] 729.1 [facility] 309.0 Office Visit 05/11/2009 9:00a DO Not Use [place] [address] 729.1 [facility] Office Visit 12/15/2008 3:00p DO Not Use [place] [address] 729.1 [facility] Office Visit 11/28/2008 2:00p DO Not Use [place] [address] 729.1 [facility] Office Visit 11/16/2008 11:00a DO Not Use [place] [address] 787.02 [facility] 338.4 292.0 Office Visit 10/24/2008 9:30a DO Not Use [place] [address] 780.79 [facility] Office Visit 07/20/2008 8:30a DO Not Use Miter Operator [place] [address] 719.47 [facility] Office Visit 06/15/2008 11:30a DO [place] Use [place] [address] 729.1 [facility] Office Visit 05/03/2008 3:00p DO Not Use [place] [address] 729.1 [facility] Office Visit 03/14/2008 2:30p DO Not Use [facility] [place] [address] 338.4 [facility] Office Visit 01/26/2008 3:30p DO Not Use [place] [place] [address] 729.1 [facility] 309.0 Office Visit 01/24/2008 9:00a DO Not Use [place] [place] [address] 729.1 [facility] Office Visit 11/26/2007 2:00p DO Not [place] [address] 782.7 [facility] 729.1 625.4 Office Visit 10/19/2007 9:00a DO Not Use [place] [place] [address] 729.1 [facility] Office Visit 09/17/2007 9:00a DO [place] [address] 729.1 [facility] Office Visit 06/08/2007 9:30a DO Not Use Miter Operator [place] [facility] [place] [address] 461.9 [facility] 729.1 Office Visit 03/03/2007 9:20a DO Not Use Miter Operator At Noe Luke, 74703 461.9 Molly Cason,FACP V04.81 Office Visit 02/08/2007 3:20p DO Not Use Miter Operator At Noe Luke, 71087 780.39 Molly Cason,FACP 780.52 346.00 Plan of Care Future Appointment(s):05/21/2017 10:20 am - Romulo Angeles NP at [facility] - Jhgbvmcrv94/31/2018 10:10 am - Mariaelena Ruffin NP at [facility] - [facility]
[2017-05-25 17:24] VITALS: BP 143/92
[2017-05-25] MEDS ORDERED: NS 0.9% 1000 ML* 1,000 ML IV ONE (17:37)
[2017-05-25] MEDS ORDERED: Ondansetron INJ* 2 MG/ML VIAL IV ONE (17:37)
[2017-05-25] MEDS ORDERED: Ketorolac INJ* 60 MG/2 ML VIAL IM ONE (17:38)
--- NOTE | 2017-05-25 18:30 | RAD ---
INDICATION: Headaches COMPARISON: MRI brain April 13, 2013 TECHNIQUE: Noncontrast axial source images were acquired from the skull base to the vertex. FINDINGS: Ventricles/sulci: The ventricles and cisterns are normal in size and configuration for age. Brain parenchyma: There is no focal parenchymal finding, evidence of intracranial mass, or intracranial mass effect. Intracranial hemorrhage:None. Extra-axial spaces: There are no abnormal extra axial fluid collections or evidence of extra-axial mass. Calvarium: There is no calvarial fracture or other calvarial abnormality. Scalp: There is no evidence of scalp or extracalvarial soft tissue abnormality. Paranasal sinuses/mastoid: The paranasal sinuses and mastoid air cells are clear. Other: None. IMPRESSION: NEGATIVE EXAMINATION
--- NOTE | 2017-05-25 18:59 | UC ---
Guerda Hansen Gabriel, scribed for Juventino Solares MD on 05/25/17 at 1734 . Headache HPI - HPI Summary HPI Summary: This patient is a 47 year old F presenting to [facility] accompanied by her family with a chief complaint of a migraine since 0700 this morning. Recently she has been having more frequent and intense headaches. She has been having headaches every day for over a week. The patient rates the pain 10/10 in severity and radiating down her face into her cheeks. Symptoms alleviated by nothing. Patient reports vomiting, impaired speech, impaired vision, chills, photophobia , and improper gait due to the pain. Patient denies weakness, numbness, CP, SOB , ABD pain, and tingling. - History Of Current Complaint Chief Complaint: UCHeadache Stated Complaint: HEADACHE, AND VOMITING Time Seen by Provider: 05/25/17 17:23 Hx Obtained From: Patient Hx Last Menstrual Period: 05/05 Onset/Duration: Lasting Hours, Still Present Onset Of Symptoms: Gradual Initially Headache Was: Initial Pain Scale(0-10)= - 10 Currently Pain Is: Current Pain Scale(0-10)= - 10 Pain Intensity: 10 Pain Scale Used: 0-10 Numeric Timing: Constant Location of Headache: Frontal, Other: - down into face Aggravating Factor(s): Bright Lights Associated Signs And Symptoms: Positive: Negative - weakness, numbness, CP, SOB , ABD pain, and tingling., Other (Noted In Comments) - Allergies/Home Medications Allergies/Adverse Reactions: Allergies Allergy/AdvReac Type Severity Reaction Status Date / Time MS Bupropion Allergy Rash Verified 04/13/13 11:54 [From Wellbutrin] PMH/Surg Hx/FS Hx/Imm Hx Cardiovascular History: Hypertension Neurological History: Migraine - Surgical History Surgical History: Yes Surgery Procedure, Year, and Place: TUBES IN EARS ( CHILD);. LAPOROSCOPY;. HYSTERSCOPY;. D&C;. LASIK (CORRECTIVE EYE); - Family History Known Family History: Positive: Hypertension Negative: Diabetes, Renal Disease, Respiratory Disease, Seizure Disorder - Social History Occupation: Employed Part-time Lives: With Family Alcohol Use: Rare Alcohol Amount: 1 glass of wine per week Substance Use Type: None Smoking Status (MU): Never Smoked Tobacco Have You Smoked in the Last Year: No Review of Systems Constitutional: Chills Eyes: Blurred Vision, Photophobia Gastrointestinal: Vomiting Neurological: Headache, Other - impaired speech, improper gait due to the pain All Other Systems Reviewed And Are Negative: Yes Physical Exam Triage Information Reviewed: Yes Vital Signs: Initial Vital Signs Temp 98.6 F 05/25/17 17:18 Pulse 72 05/25/17 17:18 Resp 14 05/25/17 17:18 BP 143/92 05/25/17 17:18 Pulse Ox 100 05/25/17 17:18 Vital Signs Reviewed: Yes - Additional Comments General: well-appearing, moderate pain distress Skin: warm, color reflects adequate perfusion, dry Head: normal Eyes: EOMI, KIKE, photophobic ENT: normal Neck: supple, nontender Respiratory: CTA, breath sounds present Cardiovascular: RRR Abdomen: soft, nontender Bowel: present Musculoskeletal: normal, strength/ROM intact Neurological: normal, sensory/motor intact, A&O x3 Psychological: affect/mood appropriate Diagnostics - Radiology CT Brain Radiology Interpretation Completed By: Radiologist - NEGATIVE EXAMINATION. Dr. Solares had reviewed this report. Headache Course/Dx - Course Course Of Treatment: BP noted and advised to follow up with PCP. Allerigrosa noted. DISCUSSED WITH DR SELF; IF APHASIA IS NEW THEN, IMAGE BRAIN. DISCUSSED WITH PATIENT, SHE REPORTS THE STUTTERING WITH THESE TYPICAL MIGRAINES IS NEW OVER THE LAST FEW MIGRAINES. IMPROVED IN CLINIC. PATIENT DECLINES GOING TO THE EMERGENCY DEPARTMENT. DISCUSSED RESULTS OF CT WITH PATIENT. F/U PMD/NEUROLOGY. - Differential Dx/Diagnosis Provider Diagnoses: MIGRAINE HEADACHE. HTN - Physician Notifications Discussed Patient Care With: Nolan Self Time Discussed With Above Provider: 17:53 Instructed by Provider To: Other - Discussed patient care with Nolan Self and he stated that if it is a significant new aphasia you need to image but if shes had them before no imagining is needed. Discharge - Discharge Plan Condition: Stable Disposition: HOME Prescriptions: HYDROcodone/ACETAMIN 5-325 MG* [[place] 5-325 TAB*] 1 tab PO Q4H PRN #10 tab MDD 6 PRN Reason: Pain Ondansetron ODT TAB* [Zofran 4 MG Odt TAB*] 4 mg PO Q6H PRN #10 tab.odt PRN Reason: Nausea Patient Education Materials: Migraine Headache (ED) Referrals: Herminia MALDONADO,Keya Hernandez [Primary Care Provider] - Additional Instructions: FOLLOW UP WITH YOUR DOCTOR. GO TO THE EMERGENCY DEPARTMENT FOR ANY WORSENING OF YOUR CONDITION OR QUESTIONS OR CONCERNS. Your blood pressure was elevated during today's visit. Please follow up with your primary care provider in 1-2 weeks. The documentation as recorded by the Guerda plaza Gabriel accurately reflects the service I personally performed and the decisions made by me, Juventino Solares MD.
== END 2017-05-25 19:10 | disposition home or self-care (01) ==
LOC: UCEAST 16:56
DX: G43.909 Migraine, unspecified, not intractable, without status migrainosus (principal); I10 Essential (primary) hypertension; Z88.8 Allergy status to other drugs, medicaments and biological substances
CPT/HCPCS: 70450; 96360; 96372; 96374; 99212; G0463; J1885; J2405